=== PATIENT | male | born 1960 | race Caucasian/White ===

== ENCOUNTER → 2018-01-21 | Outpatient (REF) | payer MEDICARE, MEDICAID ==
[2018-01-21 16:35] LABS: BASO # 0.1 10^3/uL (0.0-0.2); BASO % 0.6 % (0.0-1.0); EOS # 0.4 10^3/uL (0.0-0.50); EOS % 3.2 % (0.0-3.0); HEMATOCRIT 38.6 % (42.0-52.0); HEMOGLOBIN 12.6 g/dl (13.5-17.5); IMMATURE GRANULOCYTE % 0.5 % (0-3.0); LYMPH # 2.8 10^3/uL (1.5-4.5); LYMPH % 21.8 % (24.0-44.0); MEAN CORPUSCULAR HEMOGLOBIN 28.7 pg (27.0-33.0); MEAN CORPUSCULAR HGB CONC 32.6 g/dl (32.0-36.5); MEAN CORPUSCULAR VOLUME 87.9 fl (80.0-96.0); MONO % 7.6 % (0.0-5.0); NEUTROPHILS # 8.6 10^3/uL (1.8-7.7); NEUTROPHILS % 66.3 % (36.0-66.0); PLATELET COUNT, AUTOMATED 332 10^3/uL (150-450); RED BLOOD COUNT 4.39 10^6/uL (4.30-6.10); RED CELL DISTRIBUTION WIDTH 13.3 % (11.5-14.5); WHITE BLOOD COUNT 12.9 10^3/uL (4.0-10.0)
[2018-01-21 16:43] LABS: ALBUMIN 3.4 GM/DL (3.2-5.2); ALBUMIN/GLOBULIN RATIO 0.94 (1.00-1.93); ALKALINE PHOSPHATASE 94 U/L (45-117); ALT/SGPT 22 U/L (12-78); ANION GAP 10 MEQ/L (8-16); AST/SGOT 12 U/L (7-37); BILIRUBIN,TOTAL 0.2 MG/DL (0.2-1.0); BLOOD UREA NITROGEN 17 MG/DL (7-18); CALCIUM LEVEL 8.7 MG/DL (8.5-10.1); CARBON DIOXIDE LEVEL 26 MEQ/L (21-32); CHLORIDE LEVEL 109 MEQ/L (98-107); CREATININE FOR GFR 0.71 MG/DL (0.70-1.30); GLOMERULAR FILTRATION RATE > 60.0 (>56); GLUCOSE, FASTING 95 MG/DL (70-100); MAGNESIUM LEVEL 2.5 MG/DL (1.8-2.4); POTASSIUM SERUM 4.7 MEQ/L (3.5-5.1); SODIUM LEVEL 145 MEQ/L (136-145)
[2018-01-21 16:45] LABS: ESTIMATED AVERAGE GLUCOSE 137 MG/DL (60-110); HEMOGLOBIN A1c 6.4 %
== END ==
LOC: M SFHCCAPE 11:34
DX: E11.69 Type 2 diabetes mellitus with other specified complication (principal); E83.41 Hypermagnesemia; D72.829 Elevated white blood cell count, unspecified
CPT/HCPCS: 83735

== ENCOUNTER → 2018-02-04 | Outpatient (REF) | payer MEDICARE, MEDICAID ==
[2018-02-04 17:09] LABS: BASO # 0.1 10^3/uL (0.0-0.2); BASO % 0.6 % (0.0-1.0); EOS # 0.3 10^3/uL (0.0-0.50); EOS % 3.1 % (0.0-3.0); HEMATOCRIT 41.2 % (42.0-52.0); HEMOGLOBIN 13.2 g/dl (13.5-17.5); IMMATURE GRANULOCYTE % 0.6 % (0-3.0); LYMPH # 2.7 10^3/uL (1.5-4.5); LYMPH % 27.7 % (24.0-44.0); MEAN CORPUSCULAR HEMOGLOBIN 28.5 pg (27.0-33.0); MONO # 0.6 10^3/uL (0.0-0.8); MONO % 5.9 % (0.0-5.0); NEUTROPHILS # 6.1 10^3/uL (1.8-7.7); NEUTROPHILS % 62.1 % (36.0-66.0); PLATELET COUNT, AUTOMATED 325 10^3/uL (150-450); RED BLOOD COUNT 4.63 10^6/uL (4.30-6.10); RED CELL DISTRIBUTION WIDTH 13.4 % (11.5-14.5); WHITE BLOOD COUNT 9.8 10^3/uL (4.0-10.0)
[2018-02-05 00:50] LABS: ALBUMIN 3.8 GM/DL (3.2-5.2); ALBUMIN/GLOBULIN RATIO 1.15 (1.00-1.93); ALKALINE PHOSPHATASE 102 U/L (45-117); ALT/SGPT 20 U/L (12-78); ANION GAP 10 MEQ/L (8-16); AST/SGOT 14 U/L (7-37); BILIRUBIN,TOTAL 0.2 MG/DL (0.2-1.0); BLOOD UREA NITROGEN 17 MG/DL (7-18); CARBON DIOXIDE LEVEL 25 MEQ/L (21-32); CHLORIDE LEVEL 106 MEQ/L (98-107); CREATININE FOR GFR 0.82 MG/DL (0.70-1.30); GLOMERULAR FILTRATION RATE > 60.0 (>56); GLUCOSE, FASTING 143 MG/DL (70-100); MAGNESIUM LEVEL 2.5 MG/DL (1.8-2.4); POTASSIUM SERUM 4.6 MEQ/L (3.5-5.1); SODIUM LEVEL 141 MEQ/L (136-145); TOTAL PROTEIN 7.1 GM/DL (6.4-8.2)
== END ==
LOC: M SFHCCAPE 09:39
DX: D72.829 Elevated white blood cell count, unspecified (principal); E83.41 Hypermagnesemia
CPT/HCPCS: 83735

== ENCOUNTER → 2018-03-01 | Outpatient (CLI) | payer MEDICARE, MEDICAID ==
[~2018-03-01] MED LIST: GASTROGRAFIN SOLUTION 30ML (Q9963) As Ordered; ISOVUE-370 76% 100ML VIAL (Q9967) As Ordered
== END ==
LOC: M RAD 08:58
DX: R59.0 Localized enlarged lymph nodes (principal); N20.0 Calculus of kidney; K57.30 Diverticulosis of large intestine without perforation or abscess without bleeding; K42.9 Umbilical hernia without obstruction or gangrene
CPT/HCPCS: Q9963

== ENCOUNTER → 2018-03-26 | Outpatient (REF) | payer MEDICARE, MEDICAID ==
[2018-03-26 15:54] LABS: BASO # 0.1 10^3/uL (0.0-0.2); BASO % 0.6 % (0.0-1.0); EOS # 0.3 10^3/uL (0.0-0.50); EOS % 3.2 % (0.0-3.0); HEMATOCRIT 47.6 % (42.0-52.0); HEMOGLOBIN 15.3 g/dl (13.5-17.5); IMMATURE GRANULOCYTE % 0.4 % (0-3.0); LYMPH # 3.4 10^3/uL (1.5-4.5); LYMPH % 32.9 % (24.0-44.0); MEAN CORPUSCULAR HEMOGLOBIN 28.7 pg (27.0-33.0); MEAN CORPUSCULAR HGB CONC 32.1 g/dl (32.0-36.5); MEAN CORPUSCULAR VOLUME 89.3 fl (80.0-96.0); MONO # 0.6 10^3/uL (0.0-0.8); NEUTROPHILS # 5.8 10^3/uL (1.8-7.7); NEUTROPHILS % 56.9 % (36.0-66.0); PLATELET COUNT, AUTOMATED 250 10^3/uL (150-450); RED BLOOD COUNT 5.33 10^6/uL (4.30-6.10); RED CELL DISTRIBUTION WIDTH 13.4 % (11.5-14.5); WHITE BLOOD COUNT 10.2 10^3/uL (4.0-10.0)
[2018-03-26 16:36] LABS: C REACTIVE PROTEIN QUANTITATIV < 0.30 MG/DL (0.00-0.30)
[2018-03-26 16:43] LABS: ERYTHROCYTE SEDIMENTATION RATE 8 mm/hr (0-20)
[2018-03-27 11:16] LABS: HIV 1&2 SCREEN CENTAUR NEGATIVE (NEGATIVE)
[2018-03-28 14:15] LABS: ANTINUCLEAR ANTIBODIES DIRECT Negative (Negative)
[2018-03-29 00:10] LABS: QuantiFERON-TB Gold Plus Negative (Negative)
[2018-03-29 14:27] LABS: HISTOPLASMA GAL'MANNAN AG UR <0.5 (<0.5 ng/mL)
[2018-04-03 10:22] LABS: CRYPTOCOCCUS ANTIBODY SERUM Negative (Neg:<1:2); CRYPTOCOCCUS ANTIGEN SER Negative (Negative); HISTOPLASMOSIS ANTIBODY Negative (Neg:<1:1)
== END ==
LOC: M SFHCPLAZ 13:17
DX: R59.0 Localized enlarged lymph nodes (principal); R63.4 Abnormal weight loss; M51.36 Other intervertebral disc degeneration, lumbar region; E11.69 Type 2 diabetes mellitus with other specified complication; I10 Essential (primary) hypertension
CPT/HCPCS: 84443

== ENCOUNTER → 2018-04-02 | Outpatient (CLI) | payer MEDICARE, MEDICAID | LOC: M PLARAD 11:20 | DX: R91.8 Other nonspecific abnormal finding of lung field (principal) | CPT/HCPCS: 78815 ==

== ENCOUNTER → 2018-05-02 | Outpatient (REF) | payer MEDICARE, MEDICAID ==
[2018-05-02 17:38] LABS: ESTIMATED AVERAGE GLUCOSE 180 MG/DL (60-110); HEMOGLOBIN A1c 7.9 %
[2018-05-02 17:40] LABS: ALBUMIN 3.7 GM/DL (3.2-5.2); ALBUMIN/GLOBULIN RATIO 1.12 (1.00-1.93); ALKALINE PHOSPHATASE 105 U/L (45-117); ALT/SGPT 20 U/L (12-78); ANION GAP 7 MEQ/L (8-16); AST/SGOT 9 U/L (7-37); BILIRUBIN,TOTAL 0.3 MG/DL (0.2-1.0); BLOOD UREA NITROGEN 18 MG/DL (7-18); CALCIUM LEVEL 8.8 MG/DL (8.5-10.1); CARBON DIOXIDE LEVEL 28 MEQ/L (21-32); CHLORIDE LEVEL 104 MEQ/L (98-107); CHOLESTEROL LEVEL 207 MG/DL (<200); CHOLESTEROL RISK RATIO 4.813 (<5); CREATININE FOR GFR 0.87 MG/DL (0.70-1.30); GLOMERULAR FILTRATION RATE > 60.0 (>56); GLUCOSE, FASTING 197 MG/DL (70-100); HDL CHOLESTEROL 43 MG/DL (>40); LDL CHOLESTEROL 129 MG/DL (<100); NON-HDL-C 164 MG/DL; POTASSIUM SERUM 4.6 MEQ/L (3.5-5.1); SODIUM LEVEL 139 MEQ/L (136-145); TRIGLYCERIDES LEVEL 174 MG/DL (<150)
[2018-05-02 17:52] LABS: CREATININE, URINE 92.9 MG/DL; MALB URINE SIEMENS 28.3 MG/L; MAU/CREAT RATIO 30.4 MCG/MG (0.0-30.0)
[2018-05-02 17:56] LABS: HEMATOCRIT 42.5 % (42.0-52.0); MEAN CORPUSCULAR HEMOGLOBIN 28.9 pg (27.0-33.0); MEAN CORPUSCULAR HGB CONC 32.9 g/dl (32.0-36.5); MEAN CORPUSCULAR VOLUME 87.6 fl (80.0-96.0); PLATELET COUNT, AUTOMATED 237 10^3/uL (150-450); RED BLOOD COUNT 4.85 10^6/uL (4.30-6.10); RED CELL DISTRIBUTION WIDTH 13.7 % (11.5-14.5)
[2018-05-02 17:57] LABS: ADD MANUAL DIFFER YES; DIFF SLIDE NUMBER 151; POSITIVE DIFF POS FLAG
[2018-05-02 18:24] LABS: ATYPICAL LYMPH 20 % (0-5); BANDS 1 % (< 11); BASOPHILS 1 % (0-4); EOSINOPHILS 2 % (0-5); LYMPHOCYTES 21 % (16-52); MONOCYTES 6 % (0-8); MYELOCYTES 1 % (0-0); NEUTROPHILS 48 % (35-75); PLATELET ESTIMATE NORMAL (NORMAL)
== END ==
LOC: M SFHCCAPE 08:41
DX: E11.69 Type 2 diabetes mellitus with other specified complication (principal)
CPT/HCPCS: 84443

== ENCOUNTER → 2018-06-24 | Outpatient (CLI) | payer MEDICARE, MEDICAID ==
[~2018-06-24] MED LIST changes: +ATOR1TAB21 PO; -GASTROGRAFIN SOLUTION 30ML (Q9963) As Ordered; +GLIP10TA18 PO; -ISOVUE-370 76% 100ML VIAL (Q9967) As Ordered; +LISI10TA4 PO; +METF10004 PO; +ONDA8TAB8 PO; +PRED10TA2 PO
--- NOTE | 2018-06-24 18:03 | ECHO ---
DATE OF PROCEDURE: 06/24/2018 REFERRING PHYSICIAN: Dr. Arely Ba INDICATION: Chemotherapy. Height 185 cm Weight 129 kg. DIMENSIONS: IVS 1.3 LV 5.2 LVPW 1.1 LA 3.1 Aorta 3.2. Left atrial volume index 18 Mitral E wave velocity 100, A-wave 56 E prime septal 14.9, E prime lateral 11.3 FINDINGS: The study is of fair technical quality corresponding to patient's body habitus. The patient is in sinus rhythm. Left ventricle is of normal size and overall likely normal systolic function based on fair visualization. Computer-generated left ventricle ejection fraction was calculated as 50% but by visualization it appears better, I would estimate EF around 65%. Right ventricle was relatively poorly visualized but appear normal. Aortic valve is sclerotic but it has three leaflets and only minimal restriction of mobility. Mitral and tricuspid valves appear normal. Pulmonic valve was not well seen. No pericardial effusion is noted. Inferior vena cava is normal size. Aortic root is normal. Aortic arch and abdominal aorta were not well seen. Doppler interrogation of aortic valve reveals no insufficiency and minimal stenosis with mean gradient 7 mmHg. Both mitral and tricuspid valves are functionally competent. Mitral inflow pattern and tissue Doppler imaging of mitral annulus reveal likely normal diastolic function of ventricle. CONCLUSIONS: 1. Study is of fair technical quality. 2. Normal LV size with borderline left ventricular hypertrophy, likely preserved LV systolic and diastolic function. 3. Aortic sclerosis resulting in mild stenosis and no insufficiency. 4. Normal mitral and tricuspid valves. 5. Likely normal central venous pressure but unable to estimate pulmonary artery pressure. COMMENT: SBE prophylaxis is not recommended. INDICATION MTDD
== END ==
LOC: M CARPUL 09:32
PROVIDERS: ATTEND Internal Medicine Hematology & Oncology
DX: Z79.899 Other long term (current) drug therapy (principal); C81.90 Hodgkin lymphoma, unspecified, unspecified site

== ENCOUNTER → 2018-06-27 | Outpatient (CLI) | payer MEDICARE, MEDICAID ==
[~2018-06-27] MED LIST changes: +LIDO2.5C15 EX; +LIDOCAINE 2% MDV 20 ML VIAL As Ordered ONE; +MIDAZOLAM INJ 2 MG/2 ML VIAL (J2250) As Ordered ONE; +ceFAZolin 1GM INJ (J0690 PER 500MG) As Ordered ONE; +fentaNYL 100 MCG/2 ML INJECTION (J3010) As Ordered ONE
--- NOTE | 2018-07-22 10:28 | ROOPDOC ---
[facility] Report Of Operation Report of Operation DATE OF PROCEDURE: 06/27/2018 PREOPERATIVE DIAGNOSIS: Hodgkin's lymphoma, history of tobacco use. POSTOPERATIVE DIAGNOSIS: And consumes lymphoma, history of tobacco use. PROCEDURE: Ultrasound guided right internal jugular vein cannulation. Fluoroscopic guided right internal jugular vein tunneled central venous catheter with subcutaneous port placement with placement of a power injectable [place] Power Port. SURGEON: Dr. Marizol Adorno M.D. TOOL GRINDER OPERATOR: Asuncion Johnson ANESTHESIA: Local with sedation with 2 mg of Versed, 100 g of fentanyl and 20 mL of 2% lidocaine. SEDATION TIME: 12:33 PM to 12:57 PM for a total of 24 minutes. The sedation was administered by myself through the access in the right internal jugular vein. The cardiopulmonary monitoring during sedation was performed by the registered nurse attending the case. Administration of sedation and cardiopulmonary monitoring were performed under my direct supervision and direction. I was present for and directed the entire case. There were no sedation related complications. Patient was stable post sedation and returned to pre-sedation status. ANTIBIOTICS: Ancef 2 g FLUOROSCOPY TIME: 0.6 minutes. CONTRAST: None. ESTIMATED BLOOD LOSS: 15 mL. IV FLUID: 115 mL. COMPLICATIONS: None. DRAINS: None. SPECIMENS: None. IMPLANTS: Right internal jugular vein tunneled central venous catheter with subcutaneous port placement using a [place] Power Port which is power injectable. INDICATION: Patient is a 58-year-old male with Hodgkin's lymphoma and a history of tobacco use who requires access for chemotherapy. Patient will undergo a right possible left tunneled central venous catheter placement with subcutaneous port. Procedure was described and explained to the patient in detail including drawing of pictures showing the procedure and anatomy associated with insertion of the tunneled central venous catheter was subcutaneous port. Risks, benefits, and alternative treatment options were discussed with the patient. Alternative treatment options included, but were not limited to, no intervention. Benefits included, but were not limited to, access for chemotherapy infusion centrally, avoiding recurrent venous cannulations , IV placements and sclerosis of peripheral veins. Risks included, but were not limited to, infection, bleeding, pneumothorax, hemothorax, possible need for further open surgical intervention, renal failure requiring hemodialysis, failure of the tunneled central venous catheter with subcutaneous port to function requiring evaluation, revision and/or replacement, adverse and/or allergic reaction to the sedation medications and/or local anesthetics, anesthetic and sedation complication, possible need for transfusion of blood products, allergic reaction and/or complication from the prepping and draping materials, bruising, scarring, cerebrovascular accident, myocardial infarction, pulmonary embolus, deep venous thrombosis, poor satisfaction, poor results, poor outcome, loss of limb and loss of life. Risks of not performing the port insertion included but were not limited to inability to gain access for chemotherapy, inability to gain access for blood draws and laboratory evaluation, sclerosis and thrombophlebitis of peripheral veins and pain associated with continued peripheral cannulations. Patient's questions were answered. Patient voices understanding of these risks, benefits, and alternative treatment options. Patient voices acceptance of the risks associated with placement of a central venous tunneled catheter with subcutaneous port placement and consents to proceed with tunneled central venous catheter with subcutaneous port placement. No guarantees or promises were made to the patient regarding the results or outcome of the procedure. DESCRIPTION OF PROCEDURE: Patient was taken to the angiography suite, placed supine on the angiography room table, and prepped and draped in a standard surgical fashion. A time-out was conducted by myself and the team members involved in the procedure, confirming the correct procedure, patient, and laterality. Ultrasound was then used to evaluate the right internal jugular vein, which was noted to be easily compressible, widely patent, and free of thrombus. Ultrasound was then used to guide cannulation of the right internal jugular vein with a micropuncture needle with real-time concurrent visualization of the entry of the needle into the right internal jugular vein with a hardcopy image preserved. The skin overlying the right internal jugular vein was anesthetized with 2% lidocaine prior to cannulation. Once the right internal jugular vein was cannulated, the micropuncture wire was advanced through the micropuncture needle, which was up-sized to a micropuncture sheath. A J wire was advanced through the micropuncture sheath. The right internal jugular vein was then dilated under fluoroscopic guidance, and a #8-Australian introducer sheath was positioned through the right internal jugular vein into the superior vena cava. The wire was removed, and the #8-Australian single lumen catheter, which had been tunneled from a puncture wound in the right chest and brought out at the puncture wound at the right internal jugular vein entry site, was advanced through the introducer sheath under fluoroscopic guidance. The introducer sheath was then removed, and the catheter was positioned with the tip in the superior vena cava/right atrial junction under fluoroscopic guidance. The catheter was cut to a length of 23 cm and attached to the port. A pocket was created in the right chest after anesthetizing the overlying tissue with 2% lidocaine. The port was placed in the pocket and cannulated using an access needle. The port was noted to aspirate and flush easily and then was flushed with heparinized saline. The incision in the chest was closed using 3-0 Monocryl suture in inverted interrupted fashion. The puncture wound in the right neck was closed using a 3-0 Monocryl in inverted interrupted fashion. Steri-Strips and dressings were applied. Patient tolerated the procedure well. All instrument, sponge, and needle counts were correct at the end of the case. There were no complications. Dr. Adorno was present for and directed the entire case. Patient was transferred to the recovery area and subsequently discharged in stable condition. The tunneled central venous catheter with subcutaneous port is stable for use for access. RADIOLOGIC SUPERVISION AND INTERPRETATION: The ultrasound showed the right internal jugular vein to be easily compressible, widely patent, and free of thrombus. Ultrasound was used to guide cannulation of the right internal jugular vein with real-time concurrent visualization of the entry of the needle into the right internal jugular vein. The right internal jugular vein was then dilated under fluoroscopic guidance with a #8-Australian introducer sheath placed under fluoroscopic guidance. The 8 Australian single lumen catheter was advanced through the introducer sheath positioned with the tip in the superior vena/right atrial junction using fluoroscopic guidance with final fluoroscopic image showing the catheter and port to be in good position and good alignment with the tip in the superior vena cava/right atrial junction with no pneumo- or hemothorax noted. The tunneled central venous catheter with subcutaneous port is stable for use. Baldemar Adorno MD Jul 22, 2018 10:28
== END | disposition home or self-care (01) ==
LOC: M IRPRO 08:45
PROVIDERS: ATTEND Internal Medicine Hematology & Oncology
DX: C81.90 Hodgkin lymphoma, unspecified, unspecified site (principal); Z87.891 Personal history of nicotine dependence
CPT/HCPCS: 36561; 76937; 77001; 99152; 99153; C1788; C1894; J0690; J2250; J3010

== ENCOUNTER 2018-08-04 14:50 | Emergency (ER) | payer MEDICARE ==
[~2018-08-04] VITALS: Ht 185.4 cm; Wt 127.3 kg
[~2018-08-04 14:50] MED LIST changes: -LIDOCAINE 2% MDV 20 ML VIAL As Ordered ONE; -MIDAZOLAM INJ 2 MG/2 ML VIAL (J2250) As Ordered ONE; -ceFAZolin 1GM INJ (J0690 PER 500MG) As Ordered ONE; -fentaNYL 100 MCG/2 ML INJECTION (J3010) As Ordered ONE
[2018-08-04 16:04] LABS: BASO # 0.1 10^3/uL (0.0-0.2); EOS # 0.2 10^3/uL (0.0-0.50); EOS % 2.8 % (0.0-3.0); HEMATOCRIT 38.2 % (42.0-52.0); HEMOGLOBIN 12.7 g/dl (13.5-17.5); LYMPH # 2.9 10^3/uL (1.5-4.5); LYMPH % 37.9 % (24.0-44.0); MEAN CORPUSCULAR HEMOGLOBIN 29.1 pg (27.0-33.0); MEAN CORPUSCULAR HGB CONC 33.2 g/dl (32.0-36.5); MEAN CORPUSCULAR VOLUME 87.6 fl (80.0-96.0); MONO # 0.8 10^3/uL (0.0-0.8); MONO % 10.2 % (0.0-5.0); NEUTROPHILS # 3.6 10^3/uL (1.8-7.7); NEUTROPHILS % 47.2 % (36.0-66.0); PLATELET COUNT, AUTOMATED 237 10^3/uL (150-450); RED BLOOD COUNT 4.36 10^6/uL (4.30-6.10); WHITE BLOOD COUNT 7.6 10^3/uL (4.0-10.0)
[2018-08-04 16:33] LABS: BLOOD UREA NITROGEN 17 MG/DL (7-18); CALCIUM LEVEL 8.3 MG/DL (8.5-10.1); CARBON DIOXIDE LEVEL 26 MEQ/L (21-32); CHLORIDE LEVEL 103 MEQ/L (98-107); CREATININE FOR GFR 0.86 MG/DL (0.70-1.30); GLOMERULAR FILTRATION RATE > 60.0 (>56); GLUCOSE, FASTING 222 MG/DL (70-100); POTASSIUM SERUM 4.6 MEQ/L (3.5-5.1); SODIUM LEVEL 137 MEQ/L (136-145)
[2018-08-04] MEDS ORDERED: ISOVUE-370 76% 100ML VIAL (Q9967) As Ordered ONE (16:38)
--- NOTE | 2018-08-04 18:37 | REPVR ---
EXAM: CT Neck With Contrast EXAM DATE/TIME: 08/04/2018 5:15 PM CLINICAL HISTORY: 58 years old, male; Signs and symptoms and condition or disease; Other: Hodgkins lymphoma; Mass, lump, or swelling in neck; Additional info: Right neck swelling R/O deep abscess TECHNIQUE: Axial computed tomography images of the neck with intravenous contrast. All CT scans at this facility use at least one of these dose optimization techniques: automated exposure control; mA and/or kV adjustment per patient size (includes targeted exams where dose is matched to clinical indication); or iterative reconstruction. Coronal and sagittal reformatted images were created and reviewed. CONTRAST: Contrast Material: 75 ml of ISOVUE 370; Contrast Route: PORT COMPARISON: PT PET/CT Skull/mid thigh 04/02/2018 12:50 PM FINDINGS: Sinuses: Large retention cyst left maxillary sinus. Oropharynx: Normal. No significant tonsillar enlargement. Larynx: Normal. Normal epiglottis. Submandibular/Parotid glands: Normal. Glands are normal in size. Thyroid: Normal. No enlarged or calcified nodules. Lymph nodes: Adenopathy demonstrated from the level to 4 regions of the neck measuring up to 2 centimeters in maximum short axis dimension at level III. Lungs: Normal as visualized. Vasculature: Inflammatory changes surround the right jugular vein status post insertion of a right central venous line via right internal jugular vein approach. Bones/joints: Normal. No acute fracture. Soft tissues: Normal. No significant soft tissue swelling. IMPRESSION: 1. Large retention cyst left maxillary sinus. 2. Adenopathy demonstrated from the level to 4 regions of the neck measuring up to 2 centimeters in maximum short axis dimension at level III. Electronically signed by: Kenan Michael On 08/04/2018 18:36:15 PM
[2018-08-04] MEDS ORDERED: SODIUM CHLORIDE 0.9% INJ 10 ML SYR IV PRN (19:00)
[2018-08-04 19:12] VITALS: BP 136/78
--- NOTE | 2018-08-05 16:34 | ED PDOC ---
Post-Departure Follow-Up omid dean faxed formal report of ct neck for fu Dolores Wesley MD Aug 05, 2018 16:34
[2018-08-06] MEDS ORDERED: VICO7.5T11 PO (11:03)
[2018-08-09] MEDS ORDERED: HYDR-3716 PO (14:05)
[2018-08-09] MEDS ORDERED: VICO7.5T11 PO (16:25)
[2018-08-20] MEDS ORDERED: AMOX875T PO (09:47)
== END 2018-08-04 19:14 | disposition home or self-care (01) ==
LOC: M ED 14:50
DX: R59.0 Localized enlarged lymph nodes (principal); C81.99 Hodgkin lymphoma, unspecified, extranodal and solid organ sites; E11.9 Type 2 diabetes mellitus without complications; E78.9 Disorder of lipoprotein metabolism, unspecified; Z87.442 Personal history of urinary calculi; F17.200 Nicotine dependence, unspecified, uncomplicated; Z95.828 Presence of other vascular implants and grafts; Z79.899 Other long term (current) drug therapy; Z79.84 Long term (current) use of oral hypoglycemic drugs
CPT/HCPCS: 70491; 80048; 85025; 87880; 99284; Q9967

== ENCOUNTER → 2018-08-20 | Outpatient (REF) | payer MEDICARE ==
[~2018-08-20] MED LIST changes: +AMOX875T PO; +HYDR-3716 PO; +VICO7.5T11 PO
[2018-08-20 13:01] LABS: CHOLESTEROL LEVEL 150 MG/DL (<200); CHOLESTEROL RISK RATIO 4.838 (<5); FREE T4 1.09 NG/DL (0.76-1.46); HDL CHOLESTEROL 31 MG/DL (>40); NON-HDL-C 119 MG/DL; TRIGLYCERIDES LEVEL 420 MG/DL (<150)
[2018-08-20 13:14] LABS: CREATININE, URINE 57.2 MG/DL; MALB URINE SIEMENS 14.1 MG/L; MAU/CREAT RATIO 24.6 MCG/MG (0.0-30.0)
[2018-08-20 13:43] LABS: HEMOGLOBIN A1c 8.8 %
== END ==
LOC: M LAB REF 10:59
PROVIDERS: ATTEND Physician Assistant
DX: I10 Essential (primary) hypertension (principal); E78.2 Mixed hyperlipidemia; E11.8 Type 2 diabetes mellitus with unspecified complications

== ENCOUNTER → 2018-11-26 | Outpatient (CLI) | payer MEDICARE, SELFPAY ==
[~2018-11-26] MED LIST changes: +HYDR-4514 PO; +LANTINJ4; -VICO7.5T11 PO; +VICO7.5T12 PO
--- NOTE | 2018-11-27 14:59 | REP ---
REASON FOR EXAM: Lymphoma. COMPARISON: PET/CT 04/02/2018 which showed mesenteric and retroperitoneal hypermetabolic adenopathy. Prior CT scan of the neck 08/04/2018 was reviewed. After the intravenous administration of 9.26 mCi of FDG 18 triplane whole body PET/CT was performed from the skull base to the mid thigh. All abnormal hypermetabolic activities seen previously seen in the mesentery and retroperitoneum has resolved. There is no abnormal hypermetabolic activity seen in the neck, chest, abdomen, or pelvis. Adenopathy seen previously of the neck on the prior CT of 08/04/2018 has improved by size criteria when today's CT component of the PET/CT are compared to that prior CT. IMPRESSION: No abnormal hypermetabolic activity. Electronically Signed by Jung Farr DO 11/27/2018 03:43 P
== END ==
LOC: M PLARAD 07:08
PROVIDERS: ATTEND Internal Medicine Hematology & Oncology
DX: C81.93 Hodgkin lymphoma, unspecified, intra-abdominal lymph nodes (principal)
CPT/HCPCS: 78815; A9552

== ENCOUNTER → 2018-12-04 | Outpatient (REF) | payer MEDICARE ==
[~2018-12-04] MED LIST changes: -LANTINJ4; +VICO7.5T11 PO; -VICO7.5T12 PO
[2018-12-04 18:01] LABS: BASO # 0.1 10^3/uL (0.0-0.2); BASO % 1.1 % (0.0-1.0); EOS # 0.6 10^3/uL (0.0-0.50); EOS % 7.3 % (0.0-3.0); HEMATOCRIT 44.3 % (42.0-52.0); HEMOGLOBIN 14.2 g/dl (13.5-17.5); LYMPH # 2.3 10^3/uL (1.5-4.5); LYMPH % 28.4 % (24.0-44.0); MEAN CORPUSCULAR HEMOGLOBIN 29.8 pg (27.0-33.0); MEAN CORPUSCULAR HGB CONC 32.1 g/dl (32.0-36.5); MEAN CORPUSCULAR VOLUME 93.1 fl (80.0-96.0); MONO # 0.5 10^3/uL (0.0-0.8); MONO % 5.8 % (0.0-5.0); NEUTROPHILS # 4.6 10^3/uL (1.8-7.7); NEUTROPHILS % 57.1 % (36.0-66.0); PLATELET COUNT, AUTOMATED 211 10^3/uL (150-450); RED BLOOD COUNT 4.76 10^6/uL (4.30-6.10)
[2018-12-04 18:02] LABS: ALBUMIN 3.9 GM/DL (3.2-5.2); ALT/SGPT 48 U/L (12-78); BILIRUBIN,TOTAL 0.3 MG/DL (0.2-1.0); BLOOD UREA NITROGEN 19 MG/DL (7-18); CALCIUM LEVEL 8.8 MG/DL (8.5-10.1); CARBON DIOXIDE LEVEL 24 MEQ/L (21-32); CHLORIDE LEVEL 105 MEQ/L (98-107); CHOLESTEROL LEVEL 171 MG/DL (<200); CREATININE FOR GFR 0.83 MG/DL (0.70-1.30); GLOMERULAR FILTRATION RATE > 60.0 (>56); GLUCOSE, FASTING 215 MG/DL (70-100); HDL CHOLESTEROL 38 MG/DL (>40); LDL CHOLESTEROL 95 MG/DL (<100); NON-HDL-C 133 MG/DL; POTASSIUM SERUM 4.7 MEQ/L (3.5-5.1); SODIUM LEVEL 138 MEQ/L (136-145); TOTAL PROTEIN 7.2 GM/DL (6.4-8.2); TRIGLYCERIDES LEVEL 190 MG/DL (<150)
[2018-12-04 18:50] LABS: HEMOGLOBIN A1c 8.2 %
== END ==
LOC: M SFHCCAPE 08:06
PROVIDERS: ATTEND Physician Assistant
DX: E11.69 Type 2 diabetes mellitus with other specified complication (principal)

== ENCOUNTER 2018-12-10 11:00 | Outpatient (CLI) | payer MEDICARE ==
[2018-12-10] MEDS ORDERED: LIDOCAINE 2% MDV 20 ML VIAL As Ordered ONE (11:11)
[2018-12-10] MEDS ORDERED: BUPIVACAINE HCL 0.5% 10 ML VIAL As Ordered ONE (11:11)
[2018-12-10 12:26] VITALS: BP 142/73
--- NOTE | 2019-01-07 09:08 | ROOPDOC ---
[facility] Report Of Operation Report of Operation DATE OF PROCEDURE: 12/10/2018 PREPROCEDURE DIAGNOSES: Hodgkin's lymphoma. POSTPROCEDURE DIAGNOSES: Hodgkin's lymphoma. PROCEDURE: Right internal jugular vein tunneled central venous catheter with subcutaneous port removal. SURGEON: Dr. Marizol Adorno M.D. YOKE SETTER: None INDICATION: Patient is a 58-year-old male who underwent placement of a right internal jugular vein tunneled central venous catheter with subcutaneous port f or access for chemotherapy. Patient now no longer requires the tunneled central venous catheter with subcutaneous port and will undergo removal of the right internal jugular vein tunneled central venous catheter with subcutaneous port. The procedure was described and explained to the patient in detail including drawing of pictures demonstrating the procedure and anatomy. Risks, benefits and alternative treatment options were discussed with the patient. Benefits included but were not limited to removal of the port and central venous catheter reducing the risks of infection and complications from central venous catheter placement. Alternative treatment options included but were not limited to no intervention. Risks included but were not limited to infection, bleeding, renal failure requiring hemodialysis, pneumothorax, hemothorax, nerve injury, scarring, bruising, possible need for transfusion of blood products, anesthetic complications, allergic reaction or complication from material used for prepping and draping, cerebrovascular accident, myocardial infarction, pulmonary embolus, deep venous thrombosis, loss of limb, loss of life, poor satisfaction and poor outcome. Risks of not performing the procedure included but were not limited to infection central venous stenosis and/or occlusion, possible . Patient's questions were answered. Patient voices understanding of these risks, benefits and alternative treatment options. Patient voices acceptance of the risks associated with removal of the central venous catheter with subcutaneous port and consents to proceed. There were no guarantees or promises made to the patient regarding the outcome and/or the results of the procedure. ANESTHESIA: Local with 20 cc of 2% lidocaine mixed with 0.5% Marcaine. ESTIMATED BLOOD LOSS: 5 mL. IV FLUID: 50 mL. DRAINS: None SPECIMENS: None CONTRAST: None COMPLICATIONS: None IMPLANTS: None PROCEDURE: Patient was prepped and draped in a standard surgical fashion. A time out was completed by myself, and all the team members in the room involved at the initiation of the procedure, confirming the correct patient , procedure and laterality. The skin and subcutaneous tissue overlying the catheter and subcutaneous port were then anesthetized with 2% lidocaine mixed with 0.5% Marcaine. An incision was made through the previous incision used for the initial insertion of the tunneled central venous catheter with subcutaneous port insertion. The incision was carried down through the skin and subcutaneous tissue using a scalpel. The port was sharply dissected free using the scalpel and Metzenbaum scissors. The port and the catheter were then removed. A 4-0 Monocryl was used to approximate the subcutaneous tissue at the catheter tunnel site. The skin was then approximated using 4-0 Monocryl in inverted interrupted fashion. Once hemostasis was achieved, dressings were then applied. Patient tolerated the procedure well. All instrument, sponge and needle counts were correct at the end of the case. There were no complications. Dr. Adorno was present for directed entire case. Patient was transferred to the recovery area and subsequently discharged in stable condition. The description and results of the procedure were discussed with the patient in the postprocedure holding area with all questions being answered. Baldemar Adorno MD Jan 07, 2019 09:08
== END 2018-12-10 12:35 | disposition home or self-care (01) ==
LOC: M IRPRO 11:00
PROVIDERS: ATTEND Surgery Vascular Surgery
DX: Z45.2 Encounter for adjustment and management of vascular access device (principal); C81.90 Hodgkin lymphoma, unspecified, unspecified site; I10 Essential (primary) hypertension; E78.5 Hyperlipidemia, unspecified; E11.9 Type 2 diabetes mellitus without complications; Z72.0 Tobacco use

== ENCOUNTER → 2019-03-11 | Outpatient (REF) | payer MEDICARE ==
[~2019-03-11] MED LIST changes: +LANTINJ4; -VICO7.5T11 PO; +VICO7.5T12 PO
[2019-03-11 17:11] LABS: ALBUMIN 3.7 GM/DL (3.2-5.2); ALT/SGPT 67 U/L (12-78); BILIRUBIN,TOTAL 0.4 MG/DL (0.2-1.0); BLOOD UREA NITROGEN 16 MG/DL (7-18); CALCIUM LEVEL 8.6 MG/DL (8.5-10.1); CARBON DIOXIDE LEVEL 24 MEQ/L (21-32); CHLORIDE LEVEL 104 MEQ/L (98-107); CHOLESTEROL LEVEL 210 MG/DL (<200); CHOLESTEROL RISK RATIO 5.384 (<5); CREATININE FOR GFR 0.79 MG/DL (0.70-1.30); GLOMERULAR FILTRATION RATE > 60.0 (>56); GLUCOSE, FASTING 237 MG/DL (70-100); HDL CHOLESTEROL 39 MG/DL (>40); LDL CHOLESTEROL 129 MG/DL (<100); NON-HDL-C 171 MG/DL; POTASSIUM SERUM 4.7 MEQ/L (3.5-5.1); SODIUM LEVEL 137 MEQ/L (136-145); TOTAL PROTEIN 6.9 GM/DL (6.4-8.2); TRIGLYCERIDES LEVEL 208 MG/DL (<150)
[2019-03-11 17:37] LABS: HEMOGLOBIN A1c 11.5 %
== END ==
LOC: M SFHCCAPE 08:25
PROVIDERS: ATTEND Physician Assistant
DX: E11.8 Type 2 diabetes mellitus with unspecified complications (principal); E78.2 Mixed hyperlipidemia

== ENCOUNTER → 2019-05-12 | Outpatient (CLI) | payer MEDICARE ==
--- NOTE | 2019-05-12 17:08 | REP ---
Left wrist: Four views: History: Pain. Findings: Four views of the left wrist show overall normal mineralization. There is mild osteoarthritic spurring at the first carpometacarpal articulation. No erosive change is seen. Lateral view shows a volar accessory ossicle adjacent to the lunate bone. This has corticated margins and does not appear acute. Impression: Mild osteoarthritis. Accessory ossicle at the volar aspect of the carpus. Electronically Signed by Abiodun Holloway MD 05/12/2019 05:15 P
== END ==
LOC: M WUC 14:38
PROVIDERS: ATTEND Nurse Practitioner Family
DX: M25.532 Pain in left wrist (principal); M19.032 Primary osteoarthritis, left wrist

== ENCOUNTER → 2019-06-30 | Outpatient (REF) | payer MEDICARE ==
[2019-06-30 17:16] LABS: HEMOGLOBIN A1c 10.5 %
[2019-06-30 17:32] LABS: ALBUMIN 3.7 GM/DL (3.2-5.2); ALT/SGPT 89 U/L (12-78); BILIRUBIN,TOTAL 0.6 MG/DL (0.2-1.0); BLOOD UREA NITROGEN 16 MG/DL (7-18); CALCIUM LEVEL 8.8 MG/DL (8.5-10.1); CARBON DIOXIDE LEVEL 26 MEQ/L (21-32); CHLORIDE LEVEL 103 MEQ/L (98-107); CHOLESTEROL LEVEL 233 MG/DL (<200); CHOLESTEROL RISK RATIO 6.472 (<5); CREATININE FOR GFR 0.84 MG/DL (0.70-1.30); GLOMERULAR FILTRATION RATE > 60.0 (>56); GLUCOSE, FASTING 230 MG/DL (70-100); HDL CHOLESTEROL 36 MG/DL (>40); LDL CHOLESTEROL 126 MG/DL (<100); NON-HDL-C 197 MG/DL; POTASSIUM SERUM 4.8 MEQ/L (3.5-5.1); SODIUM LEVEL 137 MEQ/L (136-145); TOTAL PROTEIN 6.8 GM/DL (6.4-8.2); TRIGLYCERIDES LEVEL 355 MG/DL (<150)
== END ==
LOC: M SFHCCAPE 07:30
PROVIDERS: ATTEND Physician Assistant
DX: I10 Essential (primary) hypertension (principal); E11.69 Type 2 diabetes mellitus with other specified complication; E78.2 Mixed hyperlipidemia

== ENCOUNTER → 2019-07-23 | Outpatient (CLI) | payer MEDICARE ==
[~2019-07-23] MED LIST changes: +GASTROGRAFIN SOLUTION 30ML (Q9963) As Ordered ONE; +ISOVUE-370 76% 100ML VIAL (Q9967) As Ordered ONE
--- NOTE | 2019-07-23 13:04 | REPVR ---
PROCEDURE INFORMATION: Exam: CT Neck With Contrast Exam date and time: 07/23/2019 12:40 PM Age: 59 years old Clinical indication: Condition or disease; Cancer; Other: Stage 2 hodgkins lymphoma; Additional info: Restaging stage 2 hodgkins lymphoma TECHNIQUE: Imaging protocol: Computed tomography images of the neck with intravenous contrast. Radiation optimization: All CT scans at this facility use at least one of these dose optimization techniques: automated exposure control; mA and/or kV adjustment per patient size (includes targeted exams where dose is matched to clinical indication); or iterative reconstruction. Contrast material: ISOVUE 370; Contrast volume: 100 ml; Contrast route: IV; COMPARISON: CT Neck with contrast 08/04/2018 5:06 PM FINDINGS: Sinuses: There is a mucous retention cyst within the left maxillary sinus. Nasopharynx: Unremarkable. Oropharynx: Unremarkable. No significant tonsillar enlargement. Hypopharynx: Unremarkable. Larynx: Unremarkable. Normal epiglottis. Retropharyngeal space: Unremarkable. Submandibular/Parotid glands: Normal. Glands are normal in size. Thyroid: Normal. No enlarged or calcified nodules. Lymph nodes: There are small, scattered cervical lymph nodes, decreased. There is no worrisome lymphadenopathy. Trachea: Visualized trachea is unremarkable. Lungs: Unremarkable as visualized. Bones/joints: Ventral fixation plate and screws are noted at C5, C6 and C7. Soft tissues: Unremarkable. No significant soft tissue swelling. IMPRESSION: No worrisome cervical lymphadenopathy. Electronically signed by: Flores Awad On 07/23/2019 13:04:04 PM
--- NOTE | 2019-07-23 16:14 | REP ---
CT of the chest with IV contrast for Hodgkin's lymphoma: Comparison is 03/01/2018. There is a paratracheal mediastinal node with a fatty hilus measuring up to 2.3 cm short axis. This is unchanged. No other mediastinal lymph node enlargement is identified. There is no hilar lymph node enlargement. This is unchanged. There are enlarged lymph nodes in the axilla bilaterally with all with fatty ashish, as previously. The largest node on the left again measures 2.0 cm short axis. This is unchanged. There are no lung masses or nodules. There are no infiltrates or pleural effusions. The thoracic aorta is unremarkable. Cardiac size is normal. There is no pericardial effusion. There are no lytic, blastic or destructive skeletal changes. Impression: There is no change from the prior study. A single mediastinal paratracheal node is unchanged in size. This again has a fatty hilus. Multiple axillary nodes are again identified bilaterally with fatty ashish and are unchanged in size. Electronically Signed by Andrea De La Torre MD 07/23/2019 04:05 P
--- NOTE | 2019-07-23 16:28 | REP ---
CT of the abdomen and pelvis with IV and oral contrast for restaging of Hodgkin's lymphoma: Comparison is 01/15/2018. The liver is homogeneous and does not appear enlarged measuring 13 cm craniocaudad in the midclavicular line. The gallbladder and pancreas are unremarkable. The spleen is enlarged measuring 14 cm craniocaudad. This is unchanged. The adrenals and kidneys are unremarkable except for a few Bosniak type 1 renal cysts bilaterally, unchanged. The abdominal aorta is unremarkable. There are a few normal-sized periaortic nodes. This is unchanged. There is a mesenteric viktoriya mass measuring 3.6 x 2.8 cm. This measured 2.7 x 4.8 cm previously. There are a few scattered borderline enlarged mesenteric nodes, not significantly changed. There is no ascites. Pelvis: The appendix is unremarkable. There is no pelvic adenopathy. There is no ascites. The bladder is unremarkable. There are no lytic, blastic or destructive skeletal changes. There is surgical fusion of the lumbar spine and there are intervertebral disc spaces in the lumbar spine. These are unchanged. Impression: Splenomegaly, unchanged. There is a viktoriya mass in the mesentery. There is decreased size. There are a few scattered normal size mesenteric nodes. There are a few normal-sized periaortic nodes. There is no pelvic lymph node enlargement. No ascites. Electronically Signed by Andrea De La Torre MD 07/23/2019 04:19 P
== END ==
LOC: M RAD 10:34
PROVIDERS: ATTEND Nurse Practitioner Family
DX: C81.94 Hodgkin lymphoma, unspecified, lymph nodes of axilla and upper limb (principal); J34.1 Cyst and mucocele of nose and nasal sinus
CPT/HCPCS: 70491; 71260; 74177; Q9963; Q9967

== ENCOUNTER → 2019-09-30 | Outpatient (REF) | payer MEDICARE ==
[~2019-09-30] MED LIST changes: -GASTROGRAFIN SOLUTION 30ML (Q9963) As Ordered ONE; -ISOVUE-370 76% 100ML VIAL (Q9967) As Ordered ONE
[2019-09-30 11:57] LABS: ALBUMIN 3.5 GM/DL (3.2-5.2); ALT/SGPT 52 U/L (12-78); BILIRUBIN,DIRECT < 0.1 MG/DL (0.0-0.2); BILIRUBIN,TOTAL 0.3 MG/DL (0.2-1.0); BLOOD UREA NITROGEN 20 MG/DL (7-18); CALCIUM LEVEL 8.6 MG/DL (8.5-10.1); CARBON DIOXIDE LEVEL 25 MEQ/L (21-32); CHLORIDE LEVEL 105 MEQ/L (98-107); CHOLESTEROL LEVEL 142 MG/DL (<200); CHOLESTEROL RISK RATIO 4.303 (<5); CREATININE FOR GFR 0.77 MG/DL (0.70-1.30); GLOMERULAR FILTRATION RATE > 60.0 (>56); GLUCOSE, FASTING 236 MG/DL (70-100); HDL CHOLESTEROL 33 MG/DL (>40); LDL CHOLESTEROL 86 MG/DL (<100); NON-HDL-C 109 MG/DL; POTASSIUM SERUM 4.8 MEQ/L (3.5-5.1); SODIUM LEVEL 138 MEQ/L (136-145); TOTAL PROTEIN 6.7 GM/DL (6.4-8.2); TRIGLYCERIDES LEVEL 114 MG/DL (<150)
[2019-09-30 12:01] LABS: BASO # 0.1 10^3/uL (0.0-0.2); BASO % 0.8 % (0.0-1.0); EOS # 0.4 10^3/uL (0.0-0.5); EOS % 3.5 % (0.0-3.0); HEMATOCRIT 46.4 % (42.0-52.0); HEMOGLOBIN 14.7 g/dl (13.5-17.5); LYMPH % 28.7 % (24.0-44.0); MEAN CORPUSCULAR HGB CONC 31.7 g/dl (32.0-36.5); MEAN CORPUSCULAR VOLUME 88.4 fl (80.0-96.0); MONO # 0.7 10^3/uL (0.0-0.8); MONO % 6.8 % (0.0-5.0); NEUTROPHILS # 6.3 10^3/uL (1.5-8.5); NEUTROPHILS % 59.2 % (36.0-66.0); PLATELET COUNT, AUTOMATED 199 10^3/uL (150-450); RED BLOOD COUNT 5.25 10^6/uL (4.30-6.10); WHITE BLOOD COUNT 10.6 10^3/uL (4.0-10.0)
[2019-09-30 17:35] LABS: CREATININE, URINE 69.8 MG/DL; MALB URINE SIEMENS 14.8 MG/L; MAU/CREAT RATIO 21.2 MCG/MG (0.0-30.0)
== END ==
LOC: M SFHCCLAY 08:01
PROVIDERS: ATTEND Physician Assistant
DX: I10 Essential (primary) hypertension (principal); E11.69 Type 2 diabetes mellitus with other specified complication; E78.2 Mixed hyperlipidemia; R74.8 Abnormal levels of other serum enzymes

== ENCOUNTER → 2019-11-24 | Outpatient (CLI) | payer MEDICAID, MEDICARE ==
[~2019-11-24] MED LIST changes: +ATOR40TA75 PO; +GASTROGRAFIN SOLUTION 30ML (Q9963) As Ordered ONE; +ISOVUE-370 76% 100ML VIAL As Ordered ONE; +XARE20TA PO
--- NOTE | 2019-11-24 09:30 | REP ---
Clinical: Hodgkin's lymphoma. Followup. Technique: Axial contrast enhanced images from the lung bases to the pubic symphysis with coronal and sagittal re-formations using oral contrast (per protocol) and 100 ml Isovue 370 intravenous contrast material. Delayed images of the abdomen obtained. Comparison: 07/23/2019. Findings: Small mass and a few lymph nodes in the central mesentery (images 66 - 80) are again identified and relatively unchanged. Periaortic retroperitoneal lymph nodes are identified and may be slightly increased from prior examination. A preaortic and left para-aortic lymph node are identified measuring approximately 1.5 cm and previously measured approximately 1.1 cm (image 64, 69). Mild hepatomegaly and fatty infiltration to the liver again noted. Spleen, pancreas, gallbladder, bilateral adrenal glands and kidneys are essentially normal/stable. Bilateral renal cysts are again noted along with 2 mm nonobstructing right intrarenal calculus. The enteric system is without obstruction or acute inflammatory process. Normal terminal ileum and appendix identified in the right lower quadrant. Colonic diverticula noted without acute diverticulitis. Pelvis demonstrates normal bladder and age appropriate prostate/seminal vesicles. Lung bases are clear. Visualized heart and pericardium normal. Impression: 1. Central mesenteric soft tissue and lymph nodes appear relatively similar to prior examination. 2. Few para-aortic retroperitoneal nodes appear slightly increased in size from prior examination. 3. No further acute abdominopelvic pathology is appreciated. Chronic stable findings including all cysts and nonobstructing right renal calculus. Electronically Signed by Jose Montoya MD 11/24/2019 09:21 A
== END ==
LOC: M RAD 07:02
PROVIDERS: ATTEND Specialist
DX: C81.90 Hodgkin lymphoma, unspecified, unspecified site (principal); N28.1 Cyst of kidney, acquired; K57.90 Diverticulosis of intestine, part unspecified, without perforation or abscess without bleeding; N20.0 Calculus of kidney
CPT/HCPCS: 74177; Q9963; Q9967

== ENCOUNTER → 2019-12-16 | Outpatient (CLI) | payer MEDICARE, MEDICAID ==
[~2019-12-16] MED LIST changes: -GASTROGRAFIN SOLUTION 30ML (Q9963) As Ordered ONE; -ISOVUE-370 76% 100ML VIAL As Ordered ONE
== END ==
LOC: M PLARAD 08:27
PROVIDERS: ATTEND Specialist
DX: C81.98 Hodgkin lymphoma, unspecified, lymph nodes of multiple sites (principal)

== ENCOUNTER → 2020-04-05 | Outpatient (CLI) | payer MEDICAID, MEDICARE | LOC: M PLARAD 11:51 | PROVIDERS: ATTEND Specialist | DX: C81.98 Hodgkin lymphoma, unspecified, lymph nodes of multiple sites (principal) ==

== ENCOUNTER → 2020-04-13 | Outpatient (CLI) | payer MEDICARE ==
--- NOTE | 2020-04-14 09:43 | REP ---
INDICATION: HODGKINS LYMPHOMA. COMPARISON: PET-CT examinations of 04/02/2018, 11/26/2018, and 12/30/2019. Prior CT examination of the chest 07/23/[address] abdomen and pelvis 11/24/2019. TECHNIQUE: After the intravenous administration of 9.09 mCi of FDG 18 triplane whole-body PET-CT was performed from the skull base to the mid thigh. FINDINGS: Once again, there is hypermetabolic para-aortic adenopathy with maximal SUV value of 3.2. The size of the hypermetabolic periaortic lymph nodes does not appear to have changed significantly although somewhat difficult to evaluate on this examination noncontrast enhanced CT component. The central mesenteric hypermetabolic adenopathy seen on the prior CT PET is no longer hypermetabolic. The size of the lymph node, however, does not appear to be significantly changed. Once again, there is evidence of borderline and mildly enlarged mediastinal lymph nodes. These lymph nodes are not abnormally hypermetabolic. No other areas of abnormal hypermetabolic activity are seen in the neck, chest, abdomen, or pelvis. IMPRESSION: There has been improvement as described above. There are persistent findings as described above. Continued surveillance is recommended. <Electronically signed by Jung Farr > 04/14/20 [id number]
== END ==
LOC: M RAD 15:14
PROVIDERS: ATTEND Specialist
DX: C81.98 Hodgkin lymphoma, unspecified, lymph nodes of multiple sites (principal)
CPT/HCPCS: 78815; A9552

== ENCOUNTER → 2020-07-19 | Outpatient (REF) | payer MEDICARE ==
[~2020-07-19] MED LIST changes: +LISI10TA22 PO; -LISI10TA4 PO; +METF-838 PO
[2020-07-19 11:55] LABS: BASO # 0.1 10^3/uL (0.0-0.2); BASO % 0.8 % (0.0-1.0); EOS # 0.3 10^3/uL (0.0-0.5); EOS % 3.4 % (0.0-3.0); HEMATOCRIT 46.8 % (42.0-52.0); HEMOGLOBIN 14.8 g/dl (13.5-17.5); LYMPH % 30.6 % (24.0-44.0); MEAN CORPUSCULAR HEMOGLOBIN 27.9 pg (27.0-33.0); MEAN CORPUSCULAR HGB CONC 31.6 g/dl (32.0-36.5); MEAN CORPUSCULAR VOLUME 88.1 fl (80.0-96.0); MONO # 0.7 10^3/uL (0.0-0.8); NEUTROPHILS # 5.7 10^3/uL (1.5-8.5); NEUTROPHILS % 57.6 % (36.0-66.0); PLATELET COUNT, AUTOMATED 211 10^3/uL (150-450); RED BLOOD COUNT 5.31 10^6/uL (4.30-6.10); WHITE BLOOD COUNT 9.9 10^3/uL (4.0-10.0)
[2020-07-19 12:50] LABS: CHOLESTEROL RISK RATIO 6.222 (<5); THYROID STIMULATING HORMONE 1.9 uIU/ML (0.358-3.740)
[2020-07-19 13:24] LABS: HEMOGLOBIN A1c 10.8 %
== END ==
LOC: M SFHCCLAY 09:13
PROVIDERS: ATTEND Physician Assistant
DX: E11.65 Type 2 diabetes mellitus with hyperglycemia (principal); E78.2 Mixed hyperlipidemia; Z12.5 Encounter for screening for malignant neoplasm of prostate
CPT/HCPCS: 80061; 83036; 84443; 85025; G0103

== ENCOUNTER → 2020-07-23 | Outpatient (CLI) | payer MEDICAID, MEDICARE ==
[~2020-07-23] MED LIST changes: +AUGM875T28 PO; +CRES5TAB PO; +GASTROGRAFIN SOLUTION 30ML (Q9963) As Ordered ONE; +ISOVUE-370 76% 100ML VIAL As Ordered ONE
--- NOTE | 2020-07-23 16:24 | REP ---
INDICATION: HODGKINS LYMPHOMA. COMPARISON: 07/23/2019 TECHNIQUE: Bolus 100 mL Isovue 370 scanning through the chest with both coronal and sagittal reconstructions. FINDINGS: CT chest: The lung phillips are well inflated there is no pleural effusion, pleural thickening, apical scar or pneumothorax small nodule in the posterior apex on the right is 5.4 mm. This is unchanged. There is a 3 mm nodule in the mid axillary line on image 25 the right upper lobe peripherally also unchanged. There are no other or new nodules, parenchymal mass or acute infiltrate. The heart size is not enlarged. There is no pericardial thickening or effusion. Some coronary artery calcifications are suggested. The aorta is calcifications at the arch but no aneurysm or dissection there is no hiatal hernia there is a 2 cm right paratracheal node just above the hilum and separate from the azygos vein. It has a fatty center and there are multiple other sub cm right paratracheal, precarinal, AP window and prevascular nodes. Few subcentimeter hilar nodes are noted. All of these are unchanged. Aorta without aneurysm or dissection. The main, right and left pulmonary artery without filling defect. Multiple small axillary nodes are again seen. These are all subcentimeter. The bone windows show the sternum, manubrium, medial clavicles, visualized portions of scapula/humeral heads/ribs and the spine are without compression fracture or destructive lesions. Marginal osteophytes in the mid and lower thoracic spine. No hiatal hernia. Please see the CT abdomen report this date for details of the abdominal contents. IMPRESSION: 1. Stable of small right upper lobe nodules at 5.4 and 3 mm respectively posteriorly and laterally. No other nodules, acute infiltrate, atelectasis, mass or pleural effusions/pleural based mass. 2. Multiple small mediastinal and hilar nodes with small axillary nodes also seen, all less than a cm. The only nodule it is not is a stable 2 cm short axis right paratracheal node with extensive fatty replacement no other significant finding. <Electronically signed by Koffi Ann > 07/23/20 [id number]
--- NOTE | 2020-07-23 16:54 | REP ---
INDICATION: HODGKINS LYMPHOMA. COMPARISON: 11/24/2019, 07/23/2019. TECHNIQUE: Oral Gastrografin mixture per our protocol pelvic bolus 100 mL Isovue 370 scanning through the abdomen and pelvis. Coronal and sagittal reconstructions provided. FINDINGS: CT abdomen: There is no gross hepatomegaly with the right hepatic lobe about 17 cm in the midclavicular line. Left lobe is mildly prominent. There is splenomegaly moderate with the measurements 13.7 x 12 x 6.7 cm giving a splenic index of 1101 (normal less than 480). Neither liver or spleen show focal lesions. There is no ascites in the upper abdomen. Gallbladder without calcified stone or mass. Pancreas shows no focal lesions small bowel loops in the abdomen proper without mass, wall thickening or dilatation oral contrast is seen to the level of the mid transverse colon. Abdominal portion of the colon shows a few scattered diverticula without signs of diverticulitis or colitis. Appendix is seen and normal adrenal glands are normal. The kidneys show a few small cysts without solid mass, hydronephrosis or stone. These are unchanged the aorta has atherosclerotic calcifications without aneurysm. There is a retroaortic left renal vein as anatomic variation. There are periaortic lymph nodes along the left the level of the interpolar region of the kidney. The largest 15 mm in short axis. There is also a node just anterior to the aorta 17 mm on image 58 is about a mm larger than the previous study for each. There are other scattered mesenteric nodes and all of these are grouped in the central mesentery and the same or larger than on the previous study. Bone windows show postoperative change from L3 through S1 posterior fusion and hemilaminectomies. CT pelvis of the bony sacrum, pelvis and hips show some degenerative changes in both hips without destructive lesion or fracture abundant omental fat throughout the abdomen and pelvis iliac and femoral vessels with the calcification but no aneurysm I see a small amount of omental fat herniating into the umbilicus but no bowel herniation. There is no inguinal hernia or pathologic adenopathy. A few small sub cm nodes in the 3-5 mm short axis range are noted, more on the left than right. Pelvic region shows no pathologic sized nodes. A bladder well filled without mass, stone or wall thickening. Urachal remnant noted which is not associated with mass, calcification or fluid. Diverticulosis of the distal left colon and sigmoid without diverticulitis, colitis, stricture or mass. Calcifications of the seminal vesicles noted IMPRESSION: 1. Periaortic and mesenteric adenopathy as described. These nodes are all the same or a mm larger than the previous study 11/24/2019. There are no other suspicious or enlarging nodes. 2. No ascites, perforation, abscess or free air. There is diverticulosis distal left colon and sigmoid without diverticulitis. 3. Appendix seen and normal. The patient has had prior 3 level posterior fusion with the hemilaminectomies from L3 through S1. 4. Moderate splenomegaly with a splenic index 1101, normal range less than 480. Liver borderline size but no definite hepatomegaly or focal lesion. <Electronically signed by Koffi Ann > 07/23/20 2421
== END ==
LOC: M RAD 10:32
PROVIDERS: ATTEND Specialist
DX: C81.90 Hodgkin lymphoma, unspecified, unspecified site (principal)
CPT/HCPCS: 71260; 74177; Q9963; Q9967

== ENCOUNTER → 2020-09-30 | Outpatient (CLI) | payer MEDICARE ==
[~2020-09-30] MED LIST changes: -GASTROGRAFIN SOLUTION 30ML (Q9963) As Ordered ONE; -ISOVUE-370 76% 100ML VIAL As Ordered ONE
--- NOTE | 2020-10-04 16:10 | SLEEPCENT ---
NOCTURNAL POLYSOMNOGRAPHY DATE: 09/30/2020 ORDERED BY: PAULETTE Parrish Nocturnal polysomnography was performed for evaluation of sleep physiology in this patient with a history of excessive somnolence and nonrestorative sleep. 6 hours and 36 minutes of data were reviewed. There were 274.5 minutes of sleep identified. Sleep latency was delayed at 36.5 minutes. REM latency was delayed at 149 minutes. Sleep architecture initially showed poor progression and fragmentation. Improvement was made after interventions were made. The electrocardiogram showed a sinus rhythm with an average heart rate of 60 beats per minute. EEG showed normal waveforms for wake and sleep. There were 139 respiratory events identified of 10 seconds in duration or greater for an apnea-hypopnea index of 30.4. The events were associated with significant oxygen desaturations into the 70s and having identified the obstructive sleep apnea syndrome early in testing, the study was stopped shortly after 11 p.m. for the application of pressure therapy. The patient was fit with a [employer]Med Quattro full face mask of large size, 4 cm of water pressure were applied to the circuit and the lights were extinguished. Throughout the remaining hours of testing pressure titration was performed. Best pressure for avoidance of respiratory events was 20 cm. Unfortunately despite this pressure, the patient did experience obstructive hypopneic respiratory events and REM with oxygen desaturations into the upper 80s. IMPRESSION: Severe obstructive sleep apnea syndrome (G47.33), apnea-hypopnea index 30.4. RECOMMENDATION: Initiation of pressure therapy at 20 cm of water would appear appropriate based on these findings. However, close clinical follow-up is recommended as full palliation was not achieved during this split test. A full night retitration may be beneficial once the patient is accustomed to the use of the device.
== END ==
LOC: M SLEEP 20:00
PROVIDERS: ATTEND Nurse Practitioner Family
DX: G47.33 Obstructive sleep apnea (adult) (pediatric) (principal)

== ENCOUNTER → 2020-10-28 | Outpatient (CLI) | payer MEDICARE ==
[~2020-10-28] MED LIST changes: +GASTROGRAFIN SOLUTION 30ML (Q9963) As Ordered ONE; +ISOVUE-370 76% 100ML VIAL As Ordered ONE; +LIDO1CRE42 EX; -LIDO2.5C15 EX
--- NOTE | 2020-10-28 10:22 | REP ---
INDICATION: HODGKINS LYMPHOMA COMPARISON: Multiple examinations dating through 03/01/2018 TECHNIQUE: Axial contrast enhanced images from the thoracic inlet to the upper abdomen with coronal and sagittal reformations using 100 ml Isovue 370 intravenous contrast material. Examination is followed by CT of the abdomen and pelvis. This CT examination was performed using the following dose reduction techniques: Automated exposure control, adjustment of mA and/or kv according to the patient's size, and use of iterative reconstruction technique. FINDINGS: 5 mm nodule in the posterior aspect of the right lung apex (series 204; image 22) remains stable through 2018. The lung phillips are otherwise relatively well aerated and without focal consolidation, significant nodule or mass. No pleural effusion. No pneumothorax. Tracheobronchial tree is patent. Mediastinum demonstrates stable nonspecific lymph nodes measuring up to approximately 10 mm short axis diameter. Thoracic aorta, pulmonary vasculature, and heart/pericardium are relatively normal. Incidental mild atherosclerotic changes to the thoracic aorta and coronary arteries noted. Visualized thyroid gland appears normal. Surrounding musculoskeletal structures demonstrate age-related changes without acute osseous abnormality. IMPRESSION: No acute mediastinal or pleuroparenchymal process appreciated. <Electronically signed by Jose Montoya > 10/28/20 1016
--- NOTE | 2020-10-28 10:30 | REP ---
INDICATION: HODGKINS LYMPHOMA. COMPARISON: Multiple examinations dating through 03/01/2018 TECHNIQUE: Axial contrast-enhanced images from the lung bases to the pubic symphysis using 100 cc Isovue 370 intravenous contrast material. Delayed images of the abdomen obtained along with coronal and sagittal reformations.. This CT examination was performed using the following dose reduction techniques: Automated exposure control, adjustment of mA and/or kv according to the patient's size, and the use of iterative reconstruction technique. FINDINGS: Few retroperitoneal/para-aortic lymph nodes at the level of the kidneys are again identified and essentially unchanged with prior examination measuring up to 2.4 cm diameter. Focal enhancing soft tissue in the central mesenteric fat likely representing small conglomerate of lymph nodes measuring 3.1 cm maximal diameter is essentially unchanged. No new mass lesion or increased adenopathy is otherwise identified. Hepatomegaly is again noted without focal hepatic lesion. Spleen, pancreas, gallbladder, bilateral adrenal glands and kidneys are essentially normal/stable. Benign appearing bilateral renal cysts are again noted. The enteric system including stomach, small, and large bowel appears normal. No evidence for obstruction or acute inflammatory process. Normal terminal ileum and appendix are identified in the right lower quadrant. Sigmoid diverticulosis without acute diverticulitis. Pelvis demonstrates normal bladder and age-appropriate prostate/seminal vesicles. No ascites. No free air. Abdominal aorta and vasculature appear normal. Incidental retroaortic left renal vein noted. Musculoskeletal structures are stable again demonstrating degenerative changes along with prior lumbar laminectomy and posterior fixation. IMPRESSION: 1. Periaortic and central mesenteric lymph nodes as described above remains stable. No new/increased adenopathy or mass lesion is identified. No ascites. 2. Stable hepatomegaly and stable renal cysts. 3. Diverticulosis without acute diverticulitis. <Electronically signed by Jose Montoya > 10/28/20 1418
== END ==
LOC: M RAD 08:26
PROVIDERS: ATTEND Specialist
DX: C81.90 Hodgkin lymphoma, unspecified, unspecified site (principal); R16.0 Hepatomegaly, not elsewhere classified; K57.30 Diverticulosis of large intestine without perforation or abscess without bleeding; N28.1 Cyst of kidney, acquired
CPT/HCPCS: 71260; 74177; Q9963; Q9967

== ENCOUNTER → 2021-01-12 | Outpatient (REF) | payer MEDICARE ==
[~2021-01-12] MED LIST changes: -GASTROGRAFIN SOLUTION 30ML (Q9963) As Ordered ONE; -ISOVUE-370 76% 100ML VIAL As Ordered ONE
[2021-01-12 16:22] LABS: BASO # 0.1 10^3/uL (0.0-0.2); BASO % 0.8 % (0.0-1.0); EOS # 0.5 10^3/uL (0.0-0.5); EOS % 4.1 % (0.0-3.0); HEMATOCRIT 42.7 % (42.0-52.0); HEMOGLOBIN 13.9 g/dl (13.5-17.5); LYMPH # 4.4 10^3/uL (1.5-5.0); LYMPH % 38.8 % (24.0-44.0); MEAN CORPUSCULAR HEMOGLOBIN 28.3 pg (27.0-33.0); MEAN CORPUSCULAR HGB CONC 32.6 g/dl (32.0-36.5); MONO # 0.6 10^3/uL (0.0-0.8); MONO % 5.5 % (2.0-8.0); NEUTROPHILS # 5.7 10^3/uL (1.5-8.5); NEUTROPHILS % 50.2 % (36.0-66.0); PLATELET COUNT, AUTOMATED 215 10^3/uL (150-450); RED BLOOD COUNT 4.91 10^6/uL (4.30-6.10); WHITE BLOOD COUNT 11.3 10^3/uL (4.0-10.0)
[2021-01-12 16:50] LABS: HEMOGLOBIN A1c 11.5 %
[2021-01-12 16:55] LABS: CHOLESTEROL RISK RATIO 3.366 (<5)
[2021-01-12 17:03] LABS: MAU/CREAT RATIO 57.4 MCG/MG (0.0-30.0)
== END ==
LOC: M SFHCCAPE 07:55
PROVIDERS: ATTEND Physician Assistant
DX: E11.65 Type 2 diabetes mellitus with hyperglycemia (principal); I10 Essential (primary) hypertension; E78.2 Mixed hyperlipidemia; Z12.5 Encounter for screening for malignant neoplasm of prostate
CPT/HCPCS: 36415; 80061; 82043; 83036; 85025; G0103

== ENCOUNTER → 2021-05-06 | Outpatient (CLI) | payer MEDICARE ==
[~2021-05-06] MED LIST changes: +GASTROGRAFIN SOLUTION 30ML (Q9963) As Ordered ONE; +INSUH10VL SC; +ISOVUE-370 76% 100ML VIAL As Ordered ONE
== END ==
LOC: M RAD 12:33
PROVIDERS: ATTEND Specialist
DX: C81.90 Hodgkin lymphoma, unspecified, unspecified site (principal); R91.1 Solitary pulmonary nodule; I70.0 Atherosclerosis of aorta; I25.10 Atherosclerotic heart disease of native coronary artery without angina pectoris; K76.0 Fatty (change of) liver, not elsewhere classified; N28.1 Cyst of kidney, acquired; K57.90 Diverticulosis of intestine, part unspecified, without perforation or abscess without bleeding
CPT/HCPCS: 71260; 74177; Q9963; Q9967

== ENCOUNTER → 2021-05-31 | Outpatient (REF) | payer MEDICARE ==
[~2021-05-31] MED LIST changes: -GASTROGRAFIN SOLUTION 30ML (Q9963) As Ordered ONE; -ISOVUE-370 76% 100ML VIAL As Ordered ONE
[2021-05-31 16:22] LABS: BASO # 0.1 10^3/uL (0.0-0.2); BASO % 0.9 % (0.0-1.0); EOS # 0.4 10^3/uL (0.0-0.5); HEMATOCRIT 45.4 % (42.0-52.0); HEMOGLOBIN 14.3 g/dl (13.5-17.5); LYMPH # 4.1 10^3/uL (1.5-5.0); LYMPH % 41.7 % (24.0-44.0); MEAN CORPUSCULAR HEMOGLOBIN 27.6 pg (27.0-33.0); MEAN CORPUSCULAR HGB CONC 31.5 g/dl (32.0-36.5); MEAN CORPUSCULAR VOLUME 87.5 fl (80.0-96.0); MONO # 0.6 10^3/uL (0.0-0.8); NEUTROPHILS # 4.6 10^3/uL (1.5-8.5); NEUTROPHILS % 46.8 % (36.0-66.0); PLATELET COUNT, AUTOMATED 211 10^3/uL (150-450); RED BLOOD COUNT 5.19 10^6/uL (4.30-6.10); WHITE BLOOD COUNT 9.9 10^3/uL (4.0-10.0)
[2021-05-31 17:07] LABS: ALBUMIN 3.6 GM/DL (3.2-5.2); ALT/SGPT 48 U/L (12-78); BILIRUBIN,TOTAL 0.4 MG/DL (0.2-1.0); BLOOD UREA NITROGEN 13 MG/DL (7-18); CALCIUM LEVEL 8.9 MG/DL (8.5-10.1); CARBON DIOXIDE LEVEL 28 MEQ/L (21-32); CHLORIDE LEVEL 103 MEQ/L (98-107); CHOLESTEROL LEVEL 210 MG/DL (<200); CHOLESTEROL RISK RATIO 5.833 (<5); CREATININE FOR GFR 0.85 MG/DL (0.70-1.30); GLOMERULAR FILTRATION RATE > 60.0 (>56); GLUCOSE, FASTING 242 MG/DL (70-100); HDL CHOLESTEROL 36 MG/DL (>40); LDL CHOLESTEROL 130 MG/DL (<100); NON-HDL-C 174 MG/DL; POTASSIUM SERUM 4.6 MEQ/L (3.5-5.1); SODIUM LEVEL 136 MEQ/L (136-145); TOTAL PROTEIN 7.1 GM/DL (6.4-8.2); TRIGLYCERIDES LEVEL 218 MG/DL (<150)
[2021-05-31 17:26] LABS: TOTAL 25(OH) VITAMIN D 9.9 NG/ML (30.0-100.0)
== END ==
LOC: M SFHCCAPE 08:13
PROVIDERS: ATTEND Physician Assistant
DX: E78.2 Mixed hyperlipidemia (principal); E11.69 Type 2 diabetes mellitus with other specified complication; I10 Essential (primary) hypertension; Z79.899 Other long term (current) drug therapy

== ENCOUNTER → 2021-08-29 | Outpatient (REF) | payer MEDICARE ==
[2021-08-29 16:23] LABS: BASO # 0.1 10^3/uL (0.0-0.2); BASO % 0.9 % (0.0-1.0); EOS # 0.3 10^3/uL (0.0-0.5); EOS % 3.3 % (0.0-3.0); HEMATOCRIT 42.4 % (42.0-52.0); HEMOGLOBIN 14.1 g/dl (13.5-17.5); LYMPH # 3.8 10^3/uL (1.5-5.0); LYMPH % 36.8 % (24.0-44.0); MEAN CORPUSCULAR HEMOGLOBIN 28.1 pg (27.0-33.0); MEAN CORPUSCULAR HGB CONC 33.3 g/dl (32.0-36.5); MEAN CORPUSCULAR VOLUME 84.5 fl (80.0-96.0); MONO # 0.6 10^3/uL (0.0-0.8); MONO % 5.8 % (2.0-8.0); NEUTROPHILS # 5.5 10^3/uL (1.5-8.5); NEUTROPHILS % 52.8 % (36.0-66.0); PLATELET COUNT, AUTOMATED 208 10^3/uL (150-450); RED BLOOD COUNT 5.02 10^6/uL (4.30-6.10); WHITE BLOOD COUNT 10.3 10^3/uL (4.0-10.0)
[2021-08-29 16:27] LABS: ALBUMIN 3.6 GM/DL (3.2-5.2); ALT/SGPT 33 U/L (12-78); BILIRUBIN,TOTAL 0.4 MG/DL (0.2-1.0); BLOOD UREA NITROGEN 11 MG/DL (7-18); CALCIUM LEVEL 8.9 MG/DL (8.5-10.1); CARBON DIOXIDE LEVEL 28 MEQ/L (21-32); CHLORIDE LEVEL 104 MEQ/L (98-107); CHOLESTEROL LEVEL 65 MG/DL (<200); CHOLESTEROL RISK RATIO 2.321 (<5); CREATININE FOR GFR 0.83 MG/DL (0.70-1.30); GLOMERULAR FILTRATION RATE > 60.0 (>56); GLUCOSE, FASTING 227 MG/DL (70-100); HDL CHOLESTEROL 28 MG/DL (>40); LDL CHOLESTEROL 19 MG/DL (<100); NON-HDL-C 37 MG/DL; POTASSIUM SERUM 4.7 MEQ/L (3.5-5.1); SODIUM LEVEL 137 MEQ/L (136-145); TRIGLYCERIDES LEVEL 92 MG/DL (<150)
[2021-08-29 18:29] LABS: HEMOGLOBIN A1c 10.2 %
== END ==
LOC: M SFHCCAPE 07:28
PROVIDERS: ATTEND Physician Assistant
DX: E11.69 Type 2 diabetes mellitus with other specified complication (principal)

== ENCOUNTER → 2021-11-24 | Outpatient (CLI) | payer MEDICARE ==
[~2021-11-24] MED LIST changes: +GASTROGRAFIN SOLUTION 30ML (Q9963) As Ordered ONE; +ISOVUE-370 76% 100ML VIAL As Ordered ONE
[2021-11-24 10:44] LABS: BLOOD UREA NITROGEN 13 MG/DL (7-18); CALCIUM LEVEL 8.8 MG/DL (8.5-10.1); CARBON DIOXIDE LEVEL 24 MEQ/L (21-32); CHLORIDE LEVEL 107 MEQ/L (98-107); CREATININE FOR GFR 0.88 MG/DL (0.70-1.30); GLOMERULAR FILTRATION RATE > 60.0 (>56); GLUCOSE, FASTING 213 MG/DL (70-100); SODIUM LEVEL 135 MEQ/L (136-145)
== END ==
LOC: M RAD 08:13
PROVIDERS: ATTEND Specialist
DX: C81.93 Hodgkin lymphoma, unspecified, intra-abdominal lymph nodes (principal); K57.90 Diverticulosis of intestine, part unspecified, without perforation or abscess without bleeding; M51.36 Other intervertebral disc degeneration, lumbar region; I65.23 Occlusion and stenosis of bilateral carotid arteries
CPT/HCPCS: 70491; 71260; 74177; 80048; Q9963; Q9967

== ENCOUNTER → 2022-03-08 | Outpatient (REF) | payer MEDICARE ==
[~2022-03-08] MED LIST changes: -GASTROGRAFIN SOLUTION 30ML (Q9963) As Ordered ONE; -ISOVUE-370 76% 100ML VIAL As Ordered ONE; +OXYC1TAB23 PO
[2022-03-08 18:30] LABS: BASO # 0.1 10^3/uL (0.0-0.2); BASO % 0.8 % (0.0-1.0); EOS # 0.4 10^3/uL (0.0-0.5); HEMATOCRIT 40.7 % (42.0-52.0); HEMOGLOBIN 13.3 g/dl (13.5-17.5); LYMPH # 4.1 10^3/uL (1.5-5.0); LYMPH % 38.9 % (24.0-44.0); MEAN CORPUSCULAR HEMOGLOBIN 27.8 pg (27.0-33.0); MEAN CORPUSCULAR HGB CONC 32.7 g/dl (32.0-36.5); MEAN CORPUSCULAR VOLUME 85.1 fl (80.0-96.0); MONO # 0.6 10^3/uL (0.0-0.8); NEUTROPHILS # 5.3 10^3/uL (1.5-8.5); NEUTROPHILS % 49.9 % (36.0-66.0); PLATELET COUNT, AUTOMATED 212 10^3/uL (150-450); RED BLOOD COUNT 4.78 10^6/uL (4.30-6.10); WHITE BLOOD COUNT 10.6 10^3/uL (4.0-10.0)
[2022-03-08 19:08] LABS: ALBUMIN 3.7 GM/DL (3.2-5.2); ALT/SGPT 35 U/L (12-78); BILIRUBIN,TOTAL 0.4 MG/DL (0.2-1.0); BLOOD UREA NITROGEN 13 MG/DL (7-18); CALCIUM LEVEL 8.5 MG/DL (8.5-10.1); CARBON DIOXIDE LEVEL 26 MEQ/L (21-32); CHLORIDE LEVEL 104 MEQ/L (98-107); CHOLESTEROL LEVEL 69 MG/DL (<200); CREATININE FOR GFR 0.82 MG/DL (0.70-1.30); FREE T4 1.06 NG/DL (0.76-1.46); GLOMERULAR FILTRATION RATE > 60.0 (>56); GLUCOSE, FASTING 211 MG/DL (70-100); HDL CHOLESTEROL 30 MG/DL (>40); LDL CHOLESTEROL 13 MG/DL (<100); NON-HDL-C 39 MG/DL; POTASSIUM SERUM 4.6 MEQ/L (3.5-5.1); SODIUM LEVEL 137 MEQ/L (136-145); TRIGLYCERIDES LEVEL 129 MG/DL (<150)
[2022-03-08 19:19] LABS: MALB URINE SIEMENS 46.9 MG/L; MAU/CREAT RATIO 22.2 MCG/MG (0.0-30.0)
[2022-03-08 20:09] LABS: TOTAL 25(OH) VITAMIN D 17.3 NG/ML (30.0-100.0)
== END ==
LOC: M SFHCCAPE 07:57
PROVIDERS: ATTEND Physician Assistant
DX: E11.69 Type 2 diabetes mellitus with other specified complication (principal)

== ENCOUNTER → 2022-03-31 | Outpatient (CLI) | payer MEDICARE ==
[~2022-03-31] MED LIST changes: +GASTROGRAFIN SOLUTION 30ML (Q9963) As Ordered ONE; +ISOVUE-370 76% 100ML VIAL As Ordered ONE; -OXYC1TAB23 PO
== END ==
LOC: M RAD 08:32
PROVIDERS: ATTEND Specialist
DX: C81.00 Nodular lymphocyte predominant Hodgkin lymphoma, unspecified site (principal); N28.1 Cyst of kidney, acquired; R91.1 Solitary pulmonary nodule
CPT/HCPCS: 71260; 74177; Q9963; Q9967

== ENCOUNTER → 2022-05-08 | Outpatient (CLI) | payer MEDICARE ==
[~2022-05-08] MED LIST changes: -GASTROGRAFIN SOLUTION 30ML (Q9963) As Ordered ONE; -ISOVUE-370 76% 100ML VIAL As Ordered ONE; +OXYC1TAB23 PO
== END ==
LOC: M PLARAD 08:44
PROVIDERS: ATTEND Specialist
DX: C81.98 Hodgkin lymphoma, unspecified, lymph nodes of multiple sites (principal)

== ENCOUNTER → 2022-05-15 | Outpatient (CLI) | payer MEDICARE | LOC: M LABSMTC 11:41 | PROVIDERS: ATTEND Anesthesiology | DX: Z01.812 Encounter for preprocedural laboratory examination (principal); Z20.822 Contact with and (suspected) exposure to COVID-19 ==

== ENCOUNTER → 2022-05-17 | Outpatient (CLI) | payer MEDICARE ==
[~2022-05-17] MED LIST changes: +HEPARIN SOD (PORCINE) 5000UNITS/ML 1ML VIAL/SYRINGE As Ordered ONE; +LIDOCAINE 1% MDV 20ML VIAL As Ordered ONE; +MIDAZOLAM INJ 2MG/2ML VIAL (J2250 PER 1MG) As Ordered ONE; +NS 1,000 ML IV SCH; +PROMETHAZINE 25MG/ML 1ML VIAL As Ordered ONE; +ceFAZolin 2 GM/D5W 50 ML IV BAG As Ordered ONE; +ceFAZolin SOD 2 GM in IV 1 EA IV ONE; +diphenhydrAMINE 50MG/ML VIAL As Ordered ONE; +fentaNYL 100 MCG/2 ML INJECTION As Ordered ONE
[2022-05-17 16:30] VITALS: BP 141/72
== END ==
LOC: M IRPRO 10:55
PROVIDERS: ATTEND Specialist
DX: C81.90 Hodgkin lymphoma, unspecified, unspecified site (principal)
CPT/HCPCS: 36561; 99152; 99153; C1769; C1788; C1894; J0690; J1200; J1642; J1644; J2250; J2550; J3010

== ENCOUNTER → 2022-06-13 | Outpatient (POV) | payer MEDICARE ==
[~2022-06-13] VITALS: Ht 185.4 cm; Wt 134.5 kg
[~2022-06-13] MED LIST changes: -HEPARIN SOD (PORCINE) 5000UNITS/ML 1ML VIAL/SYRINGE As Ordered ONE; +LIDO1CRE42 TOP; -LIDOCAINE 1% MDV 20ML VIAL As Ordered ONE; -MIDAZOLAM INJ 2MG/2ML VIAL (J2250 PER 1MG) As Ordered ONE; -NS 1,000 ML IV SCH; -PROMETHAZINE 25MG/ML 1ML VIAL As Ordered ONE; -ceFAZolin 2 GM/D5W 50 ML IV BAG As Ordered ONE; -ceFAZolin SOD 2 GM in IV 1 EA IV ONE; -diphenhydrAMINE 50MG/ML VIAL As Ordered ONE; -fentaNYL 100 MCG/2 ML INJECTION As Ordered ONE
[2022-06-13 12:55] VITALS: BP 189/87
== END ==
LOC: M IRPOV 12:21
PROVIDERS: ATTEND Radiology Diagnostic Radiology
DX: Z45.2 Encounter for adjustment and management of vascular access device (principal)

== ENCOUNTER → 2022-06-21 | Outpatient (REF) | payer MEDICARE ==
[2022-06-21 09:00] LABS: BASO # 0.1 10^3/uL (0.0-0.2); BASO % 0.8 % (0.0-1.0); EOS # 0.4 10^3/uL (0.0-0.5); EOS % 3.4 % (0.0-3.0); HEMATOCRIT 41.9 % (42.0-52.0); HEMOGLOBIN 13.5 g/dl (13.5-17.5); LYMPH # 3.2 10^3/uL (1.5-5.0); MEAN CORPUSCULAR HEMOGLOBIN 27.2 pg (27.0-33.0); MEAN CORPUSCULAR HGB CONC 32.2 g/dl (32.0-36.5); MEAN CORPUSCULAR VOLUME 84.5 fl (80.0-96.0); MONO # 0.7 10^3/uL (0.0-0.8); MONO % 6.2 % (2.0-8.0); NEUTROPHILS # 6.3 10^3/uL (1.5-8.5); PLATELET COUNT, AUTOMATED 172 10^3/uL (150-450); RED BLOOD COUNT 4.96 10^6/uL (4.30-6.10); WHITE BLOOD COUNT 10.8 10^3/uL (4.0-10.0)
[2022-06-21 09:26] LABS: HEMOGLOBIN A1c 10.5 % (4.0-6.0)
[2022-06-21 09:34] LABS: TOTAL 25(OH) VITAMIN D 44.1 NG/ML (20.0-100.0)
[2022-06-21 09:39] LABS: ALBUMIN 3.7 G/DL (3.2-5.2); ALKALINE PHOSPHATASE 116 U/L (46-116); ALT/SGPT 32 U/L (7.0-40); AST/SGOT 27 U/L (<34); BILIRUBIN,TOTAL 0.3 MG/DL (0.3-1.2); BLOOD UREA NITROGEN 16 MG/DL (9-23); CALCIUM LEVEL 9.1 MG/DL (8.3-10.6); CARBON DIOXIDE LEVEL 26 MMOL/L (20-31); CHLORIDE LEVEL 102 MMOL/L (98-107); CHOLESTEROL LEVEL 100 MG/DL (<200); CHOLESTEROL RISK RATIO 3.19 (<5); CREATININE FOR GFR 0.66 MG/DL (0.70-1.30); GLOMERULAR FILTRATION RATE > 60.0 (>49); GLUCOSE, FASTING 259 MG/DL (74-106); HDL CHOLESTEROL 31.3 MG/DL (>40); LDL CHOLESTEROL 41.7 MG/DL (<100); NON-HDL-C 69 MG/DL; POTASSIUM SERUM 4.7 MMOL/L (3.5-5.1); SODIUM LEVEL 134 MMOL/L (136-145); TOTAL PROTEIN 6.7 G/DL (5.7-8.2); TRIGLYCERIDES LEVEL 135 MG/DL (<150)
== END ==
LOC: M LAB REF 08:32
PROVIDERS: ATTEND Physician Assistant
DX: E11.69 Type 2 diabetes mellitus with other specified complication (principal); E55.9 Vitamin D deficiency, unspecified; Z12.5 Encounter for screening for malignant neoplasm of prostate; Z79.899 Other long term (current) drug therapy
CPT/HCPCS: 80053; 80061; 82306; 83036; 85025; G0103

== ENCOUNTER → 2022-07-06 | Outpatient (CLI) | payer MEDICARE ==
[~2022-07-06] MED LIST changes: +GASTROGRAFIN SOLUTION 30ML As Ordered ONE; +ISOVUE-370 76% 100ML VIAL As Ordered ONE
== END ==
LOC: M RAD 13:22
PROVIDERS: ATTEND Internal Medicine Medical Oncology
DX: C81.08 Nodular lymphocyte predominant Hodgkin lymphoma, lymph nodes of multiple sites (principal)
CPT/HCPCS: 74160; Q9963; Q9967

== ENCOUNTER → 2022-08-28 | Outpatient (CLI) | payer MEDICARE ==
[~2022-08-28] MED LIST changes: -GASTROGRAFIN SOLUTION 30ML As Ordered ONE; -ISOVUE-370 76% 100ML VIAL As Ordered ONE
== END ==
LOC: M PLARAD 08:48
PROVIDERS: ATTEND Internal Medicine Medical Oncology
DX: C81.08 Nodular lymphocyte predominant Hodgkin lymphoma, lymph nodes of multiple sites (principal)
CPT/HCPCS: 78815; A9552

== ENCOUNTER 2022-12-05 19:15 | Emergency (ER) | payer MEDICARE ==
[~2022-12-05] VITALS: Ht 185.4 cm; Wt 131.0 kg
[2022-12-05 19:15] VITALS: BP 155/75; TEMP 98.6; O2SAT 96
[~2022-12-05 19:15] MED LIST changes: +AMOX875T2 PO; -LIDO1CRE42 EX; -LIDO1CRE42 TOP; +LIDO30CR18 EX; +LIDO30CR18 TOP
== END 2022-12-06 00:30 | disposition left against medical advice (07) ==
LOC: M ED 19:15
DX: Z53.21 Procedure and treatment not carried out due to patient leaving prior to being seen by health care provider (principal)

== ENCOUNTER 2023-01-25 21:01 | Emergency (ER) | payer MEDICARE ==
[~2023-01-25] VITALS: Ht 190.5 cm; Wt 144.0 kg
[2023-01-25 21:52] LABS: BASO % 0.1 % (0.0-1.0); EOS % 0.1 % (0.0-3.0); HEMATOCRIT 43.3 % (42.0-52.0); HEMOGLOBIN 14.5 g/dl (13.5-17.5); LYMPH # 0.7 10^3/uL (1.5-5.0); LYMPH % 5.1 % (24.0-44.0); MEAN CORPUSCULAR HGB CONC 33.5 g/dl (32.0-36.5); MEAN CORPUSCULAR VOLUME 83.6 fl (80.0-96.0); MONO # 0.6 10^3/uL (0.0-0.8); MONO % 4.3 % (2.0-8.0); NEUTROPHILS # 12.1 10^3/uL (1.5-8.5); PLATELET COUNT, AUTOMATED 206 10^3/uL (150-450); RED BLOOD COUNT 5.18 10^6/uL (4.30-6.10); WHITE BLOOD COUNT 13.4 10^3/uL (4.0-10.0)
[2023-01-25 22:19] LABS: LIPASE 35 U/L (12-53)
[2023-01-25 22:25] LABS: ALBUMIN 3.9 G/DL (3.2-5.2); ALKALINE PHOSPHATASE 117 U/L (46-116); ALT/SGPT 36 U/L (7.0-40); AST/SGOT 19 U/L (<34); BILIRUBIN,DIRECT 0.2 MG/DL (<0.4); BILIRUBIN,TOTAL 0.4 MG/DL (0.3-1.2); BLOOD UREA NITROGEN 19 MG/DL (9-23); CALCIUM LEVEL 8.6 MG/DL (8.3-10.6); CARBON DIOXIDE LEVEL 19 MMOL/L (20-31); CHLORIDE LEVEL 99 MMOL/L (98-107); CREATININE FOR GFR 0.69 MG/DL (0.70-1.30); GLOMERULAR FILTRATION RATE > 60.0 (>49); GLUCOSE, FASTING 612 MG/DL (74-106); POTASSIUM SERUM 4.8 MMOL/L (3.5-5.1); SODIUM LEVEL 130 MMOL/L (136-145); TOTAL PROTEIN 7.1 G/DL (5.7-8.2)
[2023-01-26] MEDS ORDERED: NS 1,000 ML IV ONE (01:10)
[2023-01-26] MEDS ORDERED: MORPHINE 4 MG/ML 1ML VIAL IV ONE (01:10)
[2023-01-26] MEDS ORDERED: HumuLIN R (REGULAR) INSULIN (NovoLIN R) **100U/ML** PER UNIT IV ONE ×3 (02:20→06:00)
[2023-01-26] MEDS ORDERED: KETOROLAC 30 MG/ML 1ML VIAL IV ONE (03:25)
[2023-01-26] MEDS ORDERED: FLOM0.4C39 PO (06:44)
[2023-01-26] MEDS ORDERED: KETO10TAB PO (07:48)
[2023-01-26] MEDS ORDERED: PERC5TAB12 PO (07:49)
[2023-01-26 08:16] VITALS: BP 142/80; TEMP 98.5; O2SAT 99
== END 2023-01-26 08:17 | disposition home or self-care (01) ==
LOC: M ED 21:01 → EDBD 21:01 → M ED 01-26 08:17
DX: E11.65 Type 2 diabetes mellitus with hyperglycemia (principal); N21.1 Calculus in urethra; I10 Essential (primary) hypertension; Z85.71 Personal history of Hodgkin lymphoma; F17.200 Nicotine dependence, unspecified, uncomplicated; Z79.4 Long term (current) use of insulin; Z79.899 Other long term (current) drug therapy; Z79.01 Long term (current) use of anticoagulants
CPT/HCPCS: 74177; 96361; 96374; 96375; 96376; 99284; J1815; J1885

== ENCOUNTER → 2023-02-28 | Outpatient (REF) | payer MEDICARE ==
[~2023-02-28] MED LIST changes: +FLOM0.4C39 PO; +KETO10TAB PO; +PERC5TAB12 PO
== END ==
LOC: M SFHCCAPE 10:37
PROVIDERS: ATTEND Physician Assistant Medical
DX: E11.65 Type 2 diabetes mellitus with hyperglycemia (principal); E78.2 Mixed hyperlipidemia

== ENCOUNTER → 2023-03-06 | Outpatient (REF) | payer MEDICARE ==
[2023-03-06 18:53] LABS: BASO # 0.1 10^3/uL (0.0-0.2); BASO % 0.9 % (0.0-1.0); EOS # 0.4 10^3/uL (0.0-0.5); EOS % 3.7 % (0.0-3.0); HEMATOCRIT 42.5 % (42.0-52.0); HEMOGLOBIN 13.9 g/dl (13.5-17.5); LYMPH # 2.6 10^3/uL (1.5-5.0); LYMPH % 22.8 % (24.0-44.0); MEAN CORPUSCULAR HEMOGLOBIN 28.5 pg (27.0-33.0); MEAN CORPUSCULAR HGB CONC 32.7 g/dl (32.0-36.5); MEAN CORPUSCULAR VOLUME 87.3 fl (80.0-96.0); MONO % 8.4 % (2.0-8.0); NEUTROPHILS # 7.4 10^3/uL (1.5-8.5); NEUTROPHILS % 63.7 % (36.0-66.0); PLATELET COUNT, AUTOMATED 212 10^3/uL (150-450); RED BLOOD COUNT 4.87 10^6/uL (4.30-6.10); WHITE BLOOD COUNT 11.6 10^3/uL (4.0-10.0)
[2023-03-06 19:04] LABS: HEMOGLOBIN A1c 11.6 % (4.0-6.0)
[2023-03-06 19:30] LABS: ALBUMIN 3.6 G/DL (3.2-5.2); ALKALINE PHOSPHATASE 100 U/L (46-116); ALT/SGPT 35 U/L (7.0-40); AST/SGOT 19 U/L (<34); BILIRUBIN,TOTAL 0.3 MG/DL (0.3-1.2); BLOOD UREA NITROGEN 12 MG/DL (9-23); CALCIUM LEVEL 8.9 MG/DL (8.3-10.6); CARBON DIOXIDE LEVEL 26 MMOL/L (20-31); CHLORIDE LEVEL 104 MMOL/L (98-107); CHOLESTEROL LEVEL 63 MG/DL (<200); CHOLESTEROL RISK RATIO 2.04 (<5); GLOMERULAR FILTRATION RATE > 60.0 (>49); GLUCOSE, FASTING 299 MG/DL (74-106); HDL CHOLESTEROL 30.8 MG/DL (>40); LDL CHOLESTEROL 11.6 MG/DL (<100); NON-HDL-C 32.2 MG/DL; POTASSIUM SERUM 4.9 MMOL/L (3.5-5.1); SODIUM LEVEL 135 MMOL/L (136-145); THYROID STIMULATING HORMONE 1.341 uIU/ML (0.55-4.78); TOTAL PROTEIN 6.4 G/DL (5.7-8.2); TRIGLYCERIDES LEVEL 103 MG/DL (<150)
== END ==
LOC: M SFHCCAPE 07:31
PROVIDERS: ATTEND Physician Assistant Medical
DX: E11.65 Type 2 diabetes mellitus with hyperglycemia (principal); E78.2 Mixed hyperlipidemia

== ENCOUNTER → 2023-06-18 | Outpatient (CLI) | payer MEDICARE | LOC: M PLARAD 07:34 | PROVIDERS: ATTEND Nurse Practitioner | DX: C81.91 Hodgkin lymphoma, unspecified, lymph nodes of head, face, and neck (principal) | CPT/HCPCS: 78815; A9552 ==

== ENCOUNTER → 2023-06-19 | Outpatient (REF) | payer MEDICARE ==
[2023-06-19 19:47] LABS: PSA SCREENING 0.22 NG/ML (< 4.00)
[2023-06-19 19:49] LABS: ALBUMIN 3.7 G/DL (3.2-5.2); ALKALINE PHOSPHATASE 92 U/L (46-116); ALT/SGPT 26 U/L (7.0-40); AST/SGOT 22 U/L (<34); BILIRUBIN,TOTAL 0.3 MG/DL (0.3-1.2); BLOOD UREA NITROGEN 16 MG/DL (9-23); CALCIUM LEVEL 8.7 MG/DL (8.3-10.6); CARBON DIOXIDE LEVEL 24 MMOL/L (20-31); CHLORIDE LEVEL 105 MMOL/L (98-107); CREATININE FOR GFR 0.63 MG/DL (0.70-1.30); GLOMERULAR FILTRATION RATE > 60.0 (>49); GLUCOSE, FASTING 231 MG/DL (74-106); SODIUM LEVEL 136 MMOL/L (136-145); TOTAL PROTEIN 6.5 G/DL (5.7-8.2)
== END ==
LOC: M SFHCCAPE 07:28
PROVIDERS: ATTEND Physician Assistant Medical
DX: E11.65 Type 2 diabetes mellitus with hyperglycemia (principal); Z12.5 Encounter for screening for malignant neoplasm of prostate
CPT/HCPCS: 80053; 83036; G0103

== ENCOUNTER → 2023-10-02 | Outpatient (REF) | payer MEDICARE ==
[~2023-10-02] MED LIST changes: +BASA100I; +EZET10TA21; +ROSU40TA63
[2023-10-02 18:24] LABS: HEMOGLOBIN A1c 10.5 % (4.0-6.0)
[2023-10-02 18:33] LABS: ALBUMIN 3.2 G/DL (3.2-5.2); ALKALINE PHOSPHATASE 98 U/L (46-116); ALT/SGPT 27 U/L (7.0-40); AST/SGOT 24 U/L (<34); BILIRUBIN,TOTAL 0.3 MG/DL (0.3-1.2); BLOOD UREA NITROGEN 8 MG/DL (9-23); CALCIUM LEVEL 8.6 MG/DL (8.3-10.6); CARBON DIOXIDE LEVEL 24 MMOL/L (20-31); CHLORIDE LEVEL 106 MMOL/L (98-107); CHOLESTEROL LEVEL 60 MG/DL (<200); CHOLESTEROL RISK RATIO 2.14 (<5); CREATININE FOR GFR 0.61 MG/DL (0.70-1.30); GLOMERULAR FILTRATION RATE > 60.0 (>49); GLUCOSE, FASTING 253 MG/DL (74-106); LDL CHOLESTEROL 7.4 MG/DL (<100); POTASSIUM SERUM 5.2 MMOL/L (3.5-5.1); SODIUM LEVEL 138 MMOL/L (136-145); TOTAL PROTEIN 6.1 G/DL (5.7-8.2); TRIGLYCERIDES LEVEL 123 MG/DL (<150)
== END ==
LOC: M SFHCCAPE 08:01
PROVIDERS: ATTEND Physician Assistant Medical
DX: E11.65 Type 2 diabetes mellitus with hyperglycemia (principal); E78.2 Mixed hyperlipidemia

== ENCOUNTER → 2023-10-04 | Outpatient (REF) | payer MEDICARE ==
[2023-10-04 18:11] LABS: CREATININE, URINE 46.4 MG/DL; MAU/CREAT RATIO 30.1 MCG/MG (0.0-30.0)
== END ==
LOC: M SFHCCAPE 13:44
PROVIDERS: ATTEND Physician Assistant Medical
DX: E11.65 Type 2 diabetes mellitus with hyperglycemia (principal)

== ENCOUNTER → 2024-01-07 | Outpatient (REF) | payer MEDICARE ==
[~2024-01-07] MED LIST changes: +ONDA-284 PO; -ONDA8TAB8 PO
[2024-01-07 18:53] LABS: ALBUMIN 3.7 G/DL (3.2-5.2); ALKALINE PHOSPHATASE 95 U/L (46-116); ALT/SGPT 27 U/L (7.0-40); AST/SGOT 19 U/L (<34); BILIRUBIN,TOTAL 0.4 MG/DL (0.3-1.2); BLOOD UREA NITROGEN 14 MG/DL (9-23); CALCIUM LEVEL 8.7 MG/DL (8.3-10.6); CARBON DIOXIDE LEVEL 25 MMOL/L (20-31); CHLORIDE LEVEL 105 MMOL/L (98-107); CREATININE FOR GFR 0.62 MG/DL (0.70-1.30); GLOMERULAR FILTRATION RATE > 60.0 (>49); GLUCOSE, FASTING 270 MG/DL (74-106); POTASSIUM SERUM 4.8 MMOL/L (3.5-5.1); SODIUM LEVEL 135 MMOL/L (136-145); TOTAL PROTEIN 6.6 G/DL (5.7-8.2)
[2024-01-07 18:58] LABS: HEMOGLOBIN A1c 10.8 % (4.0-6.0)
== END ==
LOC: M SFHCCAPE 07:42
PROVIDERS: ATTEND Physician Assistant Medical
DX: E11.65 Type 2 diabetes mellitus with hyperglycemia (principal)

== ENCOUNTER 2024-03-22 22:14 | Emergency (ER) | payer MEDICARE ==
[~2024-03-22] VITALS: Ht 185.4 cm; Wt 129.6 kg
[~2024-03-22 22:14] MED LIST changes: -ROSU40TA63; +ROSU40TA81
[2024-03-22 23:58] VITALS: BP 145/76; TEMP 98.1; O2SAT 98
== END 2024-03-22 23:59 | disposition home or self-care (01) ==
LOC: M ED 22:14
DX: E11.65 Type 2 diabetes mellitus with hyperglycemia (principal); I10 Essential (primary) hypertension; E78.5 Hyperlipidemia, unspecified; C81.90 Hodgkin lymphoma, unspecified, unspecified site; F17.200 Nicotine dependence, unspecified, uncomplicated; F10.10 Alcohol abuse, uncomplicated; Z79.4 Long term (current) use of insulin; Z79.899 Other long term (current) drug therapy

== ENCOUNTER → 2024-04-10 | Outpatient (REF) | payer MEDICARE ==
[2024-04-10 17:42] LABS: ALBUMIN 3.4 G/DL (3.2-5.2); ALKALINE PHOSPHATASE 83 U/L (40-129); ALT/SGPT 34 U/L (7.0-40); AST/SGOT 17 U/L (<34); BILIRUBIN,TOTAL 0.3 MG/DL (0.3-1.2); BLOOD UREA NITROGEN 9 MG/DL (9-23); CALCIUM LEVEL 8.5 MG/DL (8.3-10.6); CARBON DIOXIDE LEVEL 26 MMOL/L (20-31); CHLORIDE LEVEL 107 MMOL/L (98-107); CREATININE FOR GFR 0.61 MG/DL (0.70-1.30); GLOMERULAR FILTRATION RATE > 60.0 (>49); GLUCOSE, FASTING 214 MG/DL (74-106); POTASSIUM SERUM 4.8 MMOL/L (3.5-5.1); SODIUM LEVEL 139 MMOL/L (136-145); TOTAL PROTEIN 6.2 G/DL (5.7-8.2)
== END ==
LOC: M SFHCCAPE 08:39
PROVIDERS: ATTEND Physician Assistant Medical
DX: E11.65 Type 2 diabetes mellitus with hyperglycemia (principal)

== ENCOUNTER → 2024-07-28 | Outpatient (CLI) | payer MEDICARE | LOC: M PLARAD 11:52 | PROVIDERS: ATTEND Nurse Practitioner | DX: C81.98 Hodgkin lymphoma, unspecified, lymph nodes of multiple sites (principal) | CPT/HCPCS: 78815; A9552 ==

== ENCOUNTER → 2024-07-28 | Outpatient (REF) | payer MEDICARE ==
[2024-07-28 17:42] LABS: PSA SCREENING 0.54 NG/ML (< 4.00)
[2024-07-28 17:48] LABS: HEMOGLOBIN A1c 9.1 % (4.0-6.0)
[2024-07-28 19:19] LABS: ALBUMIN 3.8 G/DL (3.2-5.2); ALKALINE PHOSPHATASE 103 U/L (40-129); ALT/SGPT 25 U/L (7.0-40); AST/SGOT 19 U/L (<34); BILIRUBIN,TOTAL 0.3 MG/DL (0.3-1.2); BLOOD UREA NITROGEN 13 MG/DL (9-23); CALCIUM LEVEL 8.6 MG/DL (8.3-10.6); CARBON DIOXIDE LEVEL 26 MMOL/L (20-31); CHLORIDE LEVEL 106 MMOL/L (98-107); CHOLESTEROL LEVEL 103 MG/DL (<200); CHOLESTEROL RISK RATIO 3.01 (<5); CREATININE FOR GFR 0.69 MG/DL (0.70-1.30); GLOMERULAR FILTRATION RATE > 60.0 (>49); GLUCOSE, FASTING 207 MG/DL (74-106); HDL CHOLESTEROL 34.2 MG/DL (>40); LDL CHOLESTEROL 40.6 MG/DL (<100); NON-HDL-C 68.8 MG/DL; POTASSIUM SERUM 4.6 MMOL/L (3.5-5.1); SODIUM LEVEL 139 MMOL/L (136-145); TRIGLYCERIDES LEVEL 141 MG/DL (<150)
== END ==
LOC: M SFHCCAPE 08:57
PROVIDERS: ATTEND Physician Assistant Medical
DX: Z12.5 Encounter for screening for malignant neoplasm of prostate (principal); E11.65 Type 2 diabetes mellitus with hyperglycemia; E78.2 Mixed hyperlipidemia
CPT/HCPCS: 80053; 80061; 83036; G0103

== ENCOUNTER → 2025-02-02 | Outpatient (REF) | payer MEDICARE, MEDICAID ==
[~2025-02-02] MED LIST changes: -FLOM0.4C39 PO; +GLIP-320 PO; -GLIP10TA18 PO; +TAMS-18 PO
[2025-02-02 18:49] LABS: ESTIMATED AVERAGE GLUCOSE 171.0 MG/DL (60-110)
[2025-02-02 19:08] LABS: CALCIUM LEVEL 8.9 MG/DL (8.3-10.6); CARBON DIOXIDE LEVEL 25 MMOL/L (20-31); CHLORIDE LEVEL 106 MMOL/L (98-107); CREATININE FOR GFR 0.85 MG/DL (0.70-1.30); GLOMERULAR FILTRATION RATE > 90.0 (>49); POTASSIUM SERUM 4.8 MMOL/L (3.5-5.1); SODIUM LEVEL 141 MMOL/L (136-145)
== END ==
LOC: M SFHCCAPE 08:09
PROVIDERS: ATTEND Physician Assistant Medical
DX: E11.65 Type 2 diabetes mellitus with hyperglycemia (principal)